=== PATIENT | female | born 1950 | race Caucasian/White ===

== ENCOUNTER → 2018-04-01 11:30 | Outpatient (CLI) | payer MEDICARE, OTHER, SELFPAY ==
--- NOTE | 2018-04-01 | DI.MG.S_ITS ---
BILATERAL DIGITAL SCREENING MAMMOGRAM 3D/2D WITH CAD POST LUMPECTOMY: 04/01/2018 CLINICAL: Routine screening. Personal history of right breast cancer. Comparison is made to exams dated: 12/18/2016 mammogram, 12/31/2015 mammogram, and 11/20/2014 mammogram - [facility]. Prior films are currently not available. The tissue of both breasts is heterogeneously dense. This may lower the sensitivity of mammography. Current study was also evaluated with a Computer Aided Detection (CAD) system. There are benign post operative findings in the right breast. No significant masses, calcifications, or other findings are seen in either breast. There has been no significant interval change. IMPRESSION: There is no mammographic evidence of malignancy. A 1 year screening mammogram is recommended. When the prior films are obtained, an addendum will be made. This exam was interpreted at Station ID: [id number]. NOTE: For mammograms, a report in lay terms will be sent to the patient. Approximately 15% of breast malignancies will not be visualized mammographically. In the management of a palpable breast mass, a negative mammogram must not discourage biopsy of a clinically suspicious lesion. Electronically Signed By: Naheed arora/melchor:04/11/2018 14:53:44 letter sent: Normal Exam ACR BI-RADS Category 2: Benign Finding(s) 3342F
== END ==
PROVIDERS: Visit Provider Internal Medicine
DX: Z12.31 Encounter for screening mammogram for malignant neoplasm of breast (principal)
CPT/HCPCS: 77063; 77067

== ENCOUNTER → 2018-05-05 07:00 | Outpatient (CLI) | payer MEDICARE, OTHER, SELFPAY ==
[2018-05-05 12:04] LABS: BUN Creatinine Ratio 13.8 (6-22); Blood Urea Nitrogen 11 mg/dL (7-17); Calcium 9.1 mg/dL (8.4-10.2); Carbon Dioxide 26 mmol/L (22-32); Chloride 105 mmol/L (98-107); Cholesterol 209 mg/dL (140-199); Estimated Glomerular Filt Rate > 60.0 mL/min (>60); Glucose 85 mg/dL (80-110); HDL Cholesterol 63 mg/dL (40-60); HEMOLYSIS < 15 (0-50); LDL Cholesterol Calculated 133 mg/dL (<100); Potassium 3.8 mmol/L (3.4-5.1); Sodium 145 mmol/L (137-145); Triglycerides 66 mg/dL (35-150)
== END ==
PROVIDERS: Visit Provider Internal Medicine
DX: I10 Essential (primary) hypertension (principal); E78.5 Hyperlipidemia, unspecified
CPT/HCPCS: 36415; 80048; 80061

== ENCOUNTER → 2019-06-06 16:04 | Outpatient (CLI) | payer MEDICARE, OTHER, SELFPAY ==
--- NOTE | 2019-06-06 | DI.MG.S_ITS ---
BILATERAL DIGITAL SCREENING MAMMOGRAM 3D/2D WITH CAD: 06/06/2019 CLINICAL: Routine screening. Personal history of right breast cancer. Comparison is made to exams dated: 04/01/2018 mammogram - [facility], 12/18/2016 mammogram, and 12/31/2015 mammogram - [facility]. The tissue of both breasts is heterogeneously dense. This may lower the sensitivity of mammography. Current study was also evaluated with a Computer Aided Detection (CAD) system. There are benign post operative findings in the right breast. No significant masses, calcifications, or other findings are seen in either breast. There has been no significant interval change. IMPRESSION: There is no mammographic evidence of malignancy. A 1 year screening mammogram is recommended. This exam was interpreted at Station ID: [id number]. NOTE: For mammograms, a report in lay terms will be sent to the patient. Approximately 15% of breast malignancies will not be visualized mammographically. In the management of a palpable breast mass, a negative mammogram must not discourage biopsy of a clinically suspicious lesion. Electronically Signed By: Naheed arora/melchor:06/06/2019 16:48:32 letter sent: Normal Exam ACR BI-RADS Category 2: Benign Finding(s) 3342F
== END ==
PROVIDERS: PCP Nurse Practitioner; Visit Provider Nurse Practitioner
DX: Z12.31 Encounter for screening mammogram for malignant neoplasm of breast (principal); Z85.3 Personal history of malignant neoplasm of breast
CPT/HCPCS: 77063; 77067

== ENCOUNTER → 2019-07-18 08:16 | Outpatient (CLI) | payer MEDICARE, OTHER, SELFPAY ==
[2019-07-18 09:43] LABS: Cholesterol 233 mg/dL (140-199); HDL Cholesterol 66 mg/dL (40-60); LDL Cholesterol Calculated 146 mg/dL (<100); Triglycerides 104 mg/dL (35-150)
[2019-07-18 10:10] LABS: Free T3, Triiodothyronine Free 4.66 pg/mL (2.77-5.27); Free T4, Direct Thyroxine 1.11 ng/dL (0.78-2.19)
[2019-07-18 10:23] LABS: Thyroid Stimulating Hormone 3.53 uIU/mL (0.47-4.68)
== END ==
PROVIDERS: PCP Nurse Practitioner; Visit Provider Nurse Practitioner
DX: E78.5 Hyperlipidemia, unspecified (principal); I10 Essential (primary) hypertension; Z86.39 Personal history of other endocrine, nutritional and metabolic disease
CPT/HCPCS: 36415; 80061; 84439; 84443; 84481

== ENCOUNTER → 2019-07-25 09:51 | Outpatient (CLI) | payer MEDICARE, OTHER, SELFPAY | PROVIDERS: PCP Nurse Practitioner; Visit Provider Nurse Practitioner | DX: M85.852 Other specified disorders of bone density and structure, left thigh (principal); Z78.0 Asymptomatic menopausal state; Z85.3 Personal history of malignant neoplasm of breast | CPT/HCPCS: 77080 ==

== ENCOUNTER → 2019-08-03 10:22 | Outpatient (CLI) | payer MEDICARE, OTHER, SELFPAY ==
--- NOTE | 2019-08-03 11:44 | DIET.PN ---
Nutrition Initial Assessment:? ASSESS:???Mrs. Patten is a 68 yof referred for HTN and hypercholesterolemia nutrition therapy. She reports family hx of HTN and high cholesterol. She has been taking Lisinopril but would like to avoid statins through lifestyle changes. She generally avoids processed foods and dining out, but admits to eating red meat 1-2x/day including apodaca, sausage, steak, pork. She recently started working with a personal companion but was inactive prior to that. She is starting to track her food intake on ?my fitness pal?, but reports she is not sure if she is eating the appropriate amount of calories/macro to meet her needs. ? LABS: Per pt report:? Chol: 233 LDL: 146 HDL: 66 Tr ? MEDS:?? lisinopril 10 mg ? DIET: Per 24-hour recall:? B: oatmeal w/ butter, nuts, cranb, br sugar) or avocado and apodaca on toast L: cheeseburger D: fish w/ sweet potato and brocc or salad with blue cheese and apodaca ? Weight: 190 lb Ht:? 70.5 in BMI: 26.9 ? Exercise:? working with a resident athletic trainer 2-3x/ wk NUTRITION DX 1. Overweight/Obesity related to excessive energy intake, food- and nutrition-related knowledge deficit as evidenced by pt report, overconsumption of high-fat and/or energy dense foods, lack of physical activity, BMI more than normative standards for age and sex (overweight).? 2. Altered lab values related to food- and nutrition related knowledge deficit as evidenced by overconsumption of food sources high in saturated fats and sodium, dx HTN w/ hypercholesterolemia. INTERVENTION(s): 1. Discussed caloric/macronutrient needs for ht, wt, activity level and weight loss. Created calorie goal of [id number] (500 calorie deficit for 1 lb/wk weight loss). 2. Discussed the effect of carbohydrates/protein/fat on blood sugar and weight control.? Stressed importance of consistent carbohydrate intake at each meal and provided instructions for recommended servings/portions of carbohydrates/protein per meal. Provided pt with educational material. 3. Reviewed label reading and what to look for. Recommended 200 mg cholesterol and <2g sodium/day. ? Provided handouts.?? 4. Discussed the difference between simple versus complex carbohydrates and the effect of fiber on blood sugar and cholesterol control.? Discussed various methods to increase fiber content in diet. 5. Stressed importance of meal timing and not going >4-5 hours between meals. Encouraged utilizing the plate method to ensure meals are coming from all food sources. 6. Discussed importance of food preparation to encourage healthy eating, portion control, and prevent hunger/over snacking. 7. Discussed healthy weight loss goals of 1-2lbs per week through diet and exercise.? Pt agreeable to keeping a daily food record including portions. Goals: 1. Lose 10 lbs (5%) of total body weight by follow up labs in 3 mo through cutting calories to 1500 lashonda/day with 50% carb, 25% pro, 25% fat ratios. MONITOR/EVALUATE: Anticipate excellent compliance.? Patient will follow up with new labs.
== END ==
PROVIDERS: PCP Nurse Practitioner; Referring Provider Nurse Practitioner; Visit Provider Nurse Practitioner
DX: I10 Essential (primary) hypertension (principal); E78.00 Pure hypercholesterolemia, unspecified; Z71.3 Dietary counseling and surveillance; Z68.26 Body mass index [BMI] 26.0-26.9, adult
CPT/HCPCS: 97802

== ENCOUNTER → 2019-09-01 12:08 | Outpatient (CLI) | payer MEDICARE, OTHER, SELFPAY ==
[2019-09-01 13:14] LABS: BUN Creatinine Ratio 17.1 (6-22); Blood Urea Nitrogen 12 mg/dL (7-17); Calcium 9.3 mg/dL (8.4-10.2); Carbon Dioxide 28 mmol/L (22-32); Chloride 102 mmol/L (98-107); Estimated Glomerular Filt Rate > 60.0 mL/min (>60); Glucose 84 mg/dL (80-110); HEMOLYSIS < 15 (0-50); Potassium 5.2 mmol/L (3.4-5.1); Sodium 135 mmol/L (137-145)
== END ==
PROVIDERS: PCP Nurse Practitioner; Referring Provider Nurse Practitioner; Visit Provider Nurse Practitioner
DX: M85.80 Other specified disorders of bone density and structure, unspecified site (principal)
CPT/HCPCS: 36415; 80048

== ENCOUNTER → 2019-09-06 08:18 | Outpatient (CLI) | payer MEDICARE, OTHER, SELFPAY ==
[2019-09-06 09:35] LABS: Collection Time Urine 24 Hours; Creat Clearance, Corrected 99.5 mL/MIN; Creatinine Clearance Urine 114.4 mL/MIN; Creatinine Urine Random 48.8 mg/dL; Patient Height Urine 70 inches; Patient Weight Urine 180 lbs; Total Volume Urine 2700 mL
== END ==
PROVIDERS: PCP Nurse Practitioner; Referring Provider Nurse Practitioner; Visit Provider Nurse Practitioner
DX: Z59.8 Other problems related to housing and economic circumstances (principal)
CPT/HCPCS: 36415; 82575

== ENCOUNTER → 2019-09-07 10:41 | Outpatient (CLI) | payer MEDICARE, OTHER, SELFPAY ==
[2019-09-07 11:10] LABS: Add Manual Diff / Slide Review NO; Basophils Absolute Auto 0 /uL (0-100); Eosinophils Absolute Auto 100 /uL (0-450); Eosinophils Percent Auto 1.4 % (2-4); Hematocrit 37.6 % (36-46); Hemoglobin 12.8 g/dL (12.0-16.0); Lymphocytes Absolute Auto 1300 /uL (1100-4500); Lymphocytes Percent Auto 28.5 % (25-40); Mean Corpuscular HGB Conc 34.1 % (30-36); Mean Corpuscular Hemoglobin 30.4 PG (26-34); Mean Corpuscular Volume 89.2 fL (80-100); Monocytes Absolute Auto 400 /uL (0-900); Neutrophils Absolute Auto 2700 /uL (1500-7000); Neutrophils Percent Auto 59.1 % (50-75); Platelet Count 233 X10^3/uL (150-400); Red Blood Cell Count 4.21 X10^6/uL (4.0-5.2); Red Cell Distribution Width 13.5 % (11.6-14.8); White Blood Cell Count 4.5 X10^3/uL (4.5-11.0)
[2019-09-07 11:21] LABS: Erythrocyte Sedimentation Rate 10 MM/HR (0-20)
[2019-09-07 11:37] LABS: Uric Acid 3.4 mg/dL (2.5-6.2)
[2019-09-07 11:42] LABS: Rheumatoid Factor 10.7 IU/mL (<12.0)
[2019-09-07 11:44] LABS: C-Reactive Protein Quant < 0.5 mg/dL (<1.0)
[2019-09-12 08:35] LABS: ANA Screen, IFA Negative (.)
== END ==
PROVIDERS: PCP Nurse Practitioner; Referring Provider Orthopaedic Surgery; Visit Provider Orthopaedic Surgery
DX: M25.531 Pain in right wrist (principal); M25.561 Pain in right knee
CPT/HCPCS: 36415; 84550; 85025; 85651; 86038; 86140; 86430

== ENCOUNTER → 2020-01-10 08:54 | Outpatient (CLI) | payer MEDICARE, OTHER, SELFPAY ==
[2020-01-10 09:55] LABS: Albumin 3.9 g/dL (3.5-5.0); Albumin Globulin Ratio 1.7 (1.0-2.8); Alkaline Phosphatase 73 U/L (38-126); Aspartate Aminotransferase 30 IU/L (14-36); BUN Creatinine Ratio 16.9 (6-22); Bilirubin Total 0.6 mg/dL (0.2-1.3); Blood Urea Nitrogen 13 mg/dL (7-17); Calcium 9.5 mg/dL (8.4-10.2); Carbon Dioxide 30 mmol/L (22-32); Chloride 105 mmol/L (98-107); Cholesterol 156 mg/dL (140-199); Estimated Glomerular Filt Rate > 60.0 mL/min (>60); Globulin 2.3 g/dL (1.7-4.1); Glucose 88 mg/dL (80-110); HDL Cholesterol 66 mg/dL (40-60); HEMOLYSIS < 15 (0-50); LDL Cholesterol Calculated 79 mg/dL (<100); Potassium 4.5 mmol/L (3.4-5.1); Sodium 138 mmol/L (137-145); Total Protein 6.2 g/dL (6.3-8.2); Triglycerides 55 mg/dL (35-150)
[2020-01-10 14:24] LABS: Alanine Aminotransferase 21 IU/L (<35)
[2020-01-10 16:29] LABS: Creatinine Urine Random 101.5 mg/dL
[2020-01-10 16:33] LABS: Microalbumi Creatinin Ratio Ur 6.8 ug/mg CR (<30); Microalbumin Urine Random 0.7 mg/dL (0-1.6)
== END ==
PROVIDERS: PCP Nurse Practitioner; Referring Provider Nurse Practitioner; Visit Provider Nurse Practitioner
DX: E78.5 Hyperlipidemia, unspecified (principal); I10 Essential (primary) hypertension; Z79.899 Other long term (current) drug therapy
CPT/HCPCS: 36415; 80053; 80061; 82043; 82570

== ENCOUNTER 2020-03-12 12:16 | Emergency (ER) | payer MEDICARE, OTHER, SELFPAY ==
[2020-03-12] VITALS (22 sets, daily range): BP systolic 173–217; BP diastolic 72–158; PULSE 48–70; RESP 15–45; O2SAT 94–100
--- NOTE | 2020-03-12 12:23 | DI.RAD.S_ITS ---
PROCEDURE: XR CHEST 1V INDICATIONS: chest pain TECHNIQUE: One view of the chest was acquired. COMPARISON: None. FINDINGS: Surgical changes and devices: Right axillary clips and right chest wall clips are seen. Lungs and pleura: Lungs are clear. No pleural effusions or pneumothorax. Mediastinum: Mediastinal contours appear normal. Heart size is normal. Bones and chest wall: No suspicious bony lesions. Age-appropriate bony degenerative changes are seen. Overlying soft tissues appear unremarkable. IMPRESSION: Clear lungs. Postoperative and degenerative changes are seen. Dictated by: Dominick Sherman M.D. on 03/12/2020 at 12:45 Approved by: Dominick Sherman M.D. on 03/12/2020 at 12:46
--- NOTE | 2020-03-12 12:25 | ED.GENADULT ---
HPI - General Adult General Chief complaint: Chest Pain Stated complaint: HEART RATE IS IRRATIC TODAY Time Seen by Provider: 03/12/20 12:25 History of Present Illness HPI narrative: 69-year-old woman with a history of hypertension, hyperlipidemia who presents with concerns for an irregular heart rate today. When she got up this morning she put on her watch which informed her that her heart rate has been in the 40 range for approximately 10 minute (with which she was completely asymptomatic) and then as high as 8 in settling back into the 60 range which is typically where she runs. She was concerned with the erratically numbers all within add number of hours. Again no palpitations, no dyspnea she does complain of some mild central chest pressure but not actually pain. Her blood pressure is significantly elevated today and she takes only 10 mg of lisinopril at HS (and she has been compliant with this). Only additional symptoms include mildly decreased appetite over the last 3 days. She is not having orthopnea or exertional dyspnea and has no lower extremity edema. Has not noticed any cough, fevers, vomiting, diarrhea. Related Data Home Medications Medication Instructions Recorded Confirmed lisinopril 10 mg PO QPM 03/12/20 03/12/20 Allergies Allergy/AdvReac Type Severity Reaction Status Date / Time chemo IV medication, unknown Allergy Severe unable to Uncoded 08/30/19 11:50 name breath Review of Systems Review of Systems Narrative: Pertinent positive and negative findings as per HPI Remainder of review of systems is otherwise unremarkable for Constitutional: Fevers, chills, weakness ENT: No sore throat, neck pain, ear pain Respiratory: Cough, wheeze, dyspnea : Dysuria, hematuria, flank pain MS: Muscle weakness, numbness, joint swelling or warmth Neuro: Syncope, dizziness, tingling Patient History Medical History Ankle fracture (Resolved ~2016) Breast cancer (Inactive ~2003) Chicken pox (Resolved ~1958) Constipation (Acute) Endometriosis (Resolved ~1993) Fibroids (Resolved ~1993) Heavy menstrual period (Resolved ~1993) History of right breast cancer (Inactive) Hypothyroidism (Acute) Measles (Resolved ~1956) Migraines (Chronic ~2006) Mumps (Resolved ~1957) Ocular migraine (Inactive) Osteopenia after menopause (Acute) Osteopenia with high risk of fracture (Acute ~2004) 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) Ovarian cyst (Resolved ~1993) Transient global amnesia (Inactive ~2008) Vertigo (Inactive ~07/13/19) Vitamin D deficiency (Inactive) Surgical History Anesthesia (Resolved) H/O total hysterectomy (Acute ~10/1993) History of laminectomy (Resolved ~08/1996) History of lumpectomy (Resolved ~07/2003) Family History Father Diabetes mellitus History of heart disease Hypertension Stroke Mother Hypertension Dementia Brother Dementia Brother Cancer Hypertension History of heart disease Brother Hypertension Grandfather History of heart disease Grandmother Tuberculosis Grandfather TBI (traumatic brain injury) Grandmother History of heart disease Social History Smoking Status: Never smoker Smoking Status: Never smoker Exam Narrative Exam Narrative: General: Healthy appearing, in no acute distress. Able to give a complete and coherent history. Well-nourished well-developed HEENT: Moist mucous membranes, normal sclera with reactive pupils, Neck: No JVD, supple Respiratory: Lungs are clear to auscultation, no wheezing no rales no rhonchi. Full and symmetrical air movement Cardiac: Regular rate and rhythm no murmurs no bruits Abdomen: Soft nontender good bowel tones, no flank pain Skin: Warm and dry, no rashes Neurologic: Grossly neurologically intact with no obvious asymmetries or abnormalities Extremities: No trauma, well perfused Psych: Cooperative, appropriate insight and affect Initial Vital Signs Initial Vital Signs: Vital Signs Pulse Rate 65 03/12/20 12:20 Respiratory Rate 18 03/12/20 12:20 Blood Pressure 208/91 H 03/12/20 12:20 Pulse Oximetry 100 03/12/20 12:20 Course Orders Ordered: ED Orders 03/12/20 12:23 XR chest 1V Stat EKG-12 Lead Stat 03/12/20 12:39 Complete Blood Count AUTO DIFF Stat Comprehensive Metabolic Panel Stat Lipase Stat Magnesium Stat Partial Thromboplastin Time Stat Prothrombin Time INR Stat Troponin & CK Cardiac Panel Stat 03/12/20 14:43 Urine Microscopic Stat 03/12/20 14:52 Thyroid Stimulating Hormone Stat Troponin I Stat Discontinued Medications Aspirin (Aspirin Chew) 324 mg PO NOW ONE Stop: 03/12/20 12:24 Last Admin: 03/12/20 12:31 Dose: 324 mg Documented by: MIRTHA Lisinopril (Zestril) 10 mg PO NOW ONE Stop: 03/12/20 14:49 Last Admin: 03/12/20 14:53 Dose: 10 mg Documented by: MADDI Metoprolol Tartrate (Lopressor) 25 mg PO NOW ONE Stop: 03/12/20 13:03 Last Admin: 03/12/20 13:17 Dose: 25 mg Documented by: MIRTHA Vital Signs Vital signs: Vital Signs - 8 hr 03/12/20 12:20 03/12/20 12:24 03/12/20 12:30 Pulse Rate 65 68 69 Respiratory Rate 18 16 22 Blood Pressure 208/91 H 208/91 H 210/137 H Pulse Oximetry 100 99 100 03/12/20 12:31 03/12/20 12:39 03/12/20 13:00 Pulse Rate 70 62 66 Respiratory Rate 22 16 22 Blood Pressure 217/112 H 187/84 H Pulse Oximetry 100 100 100 03/12/20 13:01 03/12/20 13:30 03/12/20 13:31 Pulse Rate 65 60 59 L Respiratory Rate 21 16 18 Blood Pressure 194/158 H 173/72 H Pulse Oximetry 100 100 100 03/12/20 14:00 03/12/20 14:01 03/12/20 14:31 Pulse Rate 54 L 55 L 57 L Respiratory Rate 16 19 Blood Pressure 173/72 H Pulse Oximetry 100 100 100 03/12/20 14:38 03/12/20 14:53 03/12/20 15:00 Pulse Rate 50 L 53 L 49 L Respiratory Rate 22 16 Blood Pressure 192/89 H 192/89 H Pulse Oximetry 100 99 03/12/20 15:01 03/12/20 15:30 03/12/20 15:31 Pulse Rate 53 L 53 L 52 L Respiratory Rate 23 21 45 H Blood Pressure 179/81 H 188/84 H Pulse Oximetry 100 94 100 Medical Decision Making Medical Records Medical records reviewed: Yes I reviewed the patient's medical records. Lab Data Lab results reviewed: Yes I reviewed the patient's lab results. Result diagrams: 03/12/20 12:39 03/12/20 12:39 Labs: Lab Results 03/12/20 03/12/20 03/12/20 Range/Units 12:39 12:39 12:39 WBC 5.4 (4.5-11.0) X10^3/uL RBC 4.20 (4.0-5.2) X10^6/uL Hgb 12.5 (12.0-16.0) g/dL Hct 37.9 (36-46) % MCV 90.3 (80-100) fL MCH 29.8 (26-34) PG MCHC 33.0 (30-36) % RDW 13.3 (11.6-14.8) % Plt Count 237 (150-400) X10^3/uL Neut % (Auto) 57.6 (50-75) % Lymph % (Auto) 30.6 (25-40) % Routt % (Auto) 9.6 (3-14) % Eos % (Auto) 1.4 L (2-4) % Baso % (Auto) 0.8 (0-2) % Neut # (Auto) 3100 (8458-6097) /uL Lymph # (Auto) 1700 (7331-6172) /uL Routt # (Auto) 500 (0-900) /uL Eos # (Auto) 100 (0-450) /uL Baso # (Auto) 0 (0-100) /uL PT 11.8 (10.1-12.7) SECONDS INR 1.0 (0.9-1.3) APTT 36 (26.4-36.2) SECONDS Sodium 138 (137-145) mmol/L Potassium 4.0 (3.4-5.1) mmol/L Chloride 103 (98-107) mmol/L Carbon Dioxide 30 (22-32) mmol/L BUN 12 (7-17) mg/dL Creatinine 0.76 (0.52-1.04) mg/dL Estimated GFR > 60.0 (>60) mL/min BUN/Creatinine Ratio 15.8 (6-22) Glucose 97 (80-110) mg/dL Calcium 9.3 (8.4-10.2) mg/dL Magnesium 2.0 (1.6-2.3) mg/dL Total Bilirubin 0.5 (0.2-1.3) mg/dL AST 29 (14-36) IU/L ALT 22 (<35) IU/L Alkaline Phosphatase 76 (38-126) U/L Total Creatine Kinase 45 (30-135) U/L CK-MB (CK-2) TNP CK-MB (CK-2) Rel Index TNP Troponin I < 0.012 (0.01-0.034) ng/mL Total Protein 7.1 (6.3-8.2) g/dL Albumin 4.2 (3.5-5.0) g/dL Globulin 2.9 (1.7-4.1) g/dL Albumin/Globulin Ratio 1.4 (1.0-2.8) Lipase 81 (23-300) U/L Urine RBC (0-5/HPF) Urine WBC (0-5/HPF) Ur Squamous Epith Cells (0-5/HPF) Amorphous Sediment Urine Bacteria (None) Ur Culture Indicated? 03/12/20 03/12/20 Range/Units 14:43 14:52 WBC (4.5-11.0) X10^3/uL RBC (4.0-5.2) X10^6/uL Hgb (12.0-16.0) g/dL Hct (36-46) % MCV (80-100) fL MCH (26-34) PG MCHC (30-36) % RDW (11.6-14.8) % Plt Count (150-400) X10^3/uL Neut % (Auto) (50-75) % Lymph % (Auto) (25-40) % Routt % (Auto) (3-14) % Eos % (Auto) (2-4) % Baso % (Auto) (0-2) % Neut # (Auto) (6634-4737) /uL Lymph # (Auto) (5405-0012) /uL Routt # (Auto) (0-900) /uL Eos # (Auto) (0-450) /uL Baso # (Auto) (0-100) /uL PT (10.1-12.7) SECONDS INR (0.9-1.3) APTT (26.4-36.2) SECONDS Sodium (137-145) mmol/L Potassium (3.4-5.1) mmol/L Chloride (98-107) mmol/L Carbon Dioxide (22-32) mmol/L BUN (7-17) mg/dL Creatinine (0.52-1.04) mg/dL Estimated GFR (>60) mL/min BUN/Creatinine Ratio (6-22) Glucose (80-110) mg/dL Calcium (8.4-10.2) mg/dL Magnesium (1.6-2.3) mg/dL Total Bilirubin (0.2-1.3) mg/dL AST (14-36) IU/L ALT (<35) IU/L Alkaline Phosphatase (38-126) U/L Total Creatine Kinase (30-135) U/L CK-MB (CK-2) CK-MB (CK-2) Rel Index Troponin I < 0.012 (0.01-0.034) ng/mL Total Protein (6.3-8.2) g/dL Albumin (3.5-5.0) g/dL Globulin (1.7-4.1) g/dL Albumin/Globulin Ratio (1.0-2.8) Lipase (23-300) U/L Urine RBC None seen (0-5/HPF) Urine WBC 0-1/hpf (0-5/HPF) Ur Squamous Epith Cells 0-1 /hpf (0-5/HPF) Amorphous Sediment 1+ Urine Bacteria Occasional (0-1) (None) Ur Culture Indicated? Cult not indicated Urine Dip Bedside Urine Glucose Negative Bedside Urine Bilirubin - Negative Bedside Urine Ketone - Negative Urine Specific [place] 1.010 Bedside Urine Occult Blood - Negative Bedside Urine pH 7.0 Bedside Urine Protein - Negative Bedside Urine Urobilinogen - Negative Bedside Urine Nitrite - Negative Bedside Urine Leukocytes +/- 15 Esterase Point of care testing: Urine Dip Bedside Urine Glucose Negative Bedside Urine Bilirubin - Negative Bedside Urine Ketone - Negative Urine Specific [place] 1.010 Bedside Urine Occult Blood - Negative Bedside Urine pH 7.0 Bedside Urine Protein - Negative Bedside Urine Urobilinogen - Negative Bedside Urine Nitrite - Negative Bedside Urine Leukocytes +/- 15 Esterase Imaging Data Chest x-ray: Radiologist's Impression: FINDINGS: Surgical changes and devices: Right axillary clips and right chest wall clips are seen. Lungs and pleura: Lungs are clear. No pleural effusions or pneumothorax. Mediastinum: Mediastinal contours appear normal. Heart size is normal. Bones and chest wall: No suspicious bony lesions. Age-appropriate bony degenerative changes are seen. Overlying soft tissues appear unremarkable. IMPRESSION: Clear lungs. Postoperative and degenerative changes are seen. Dictated by: Dominick Sherman M.D. on 03/12/2020 at 12:45 ECG Data Attestation: I personally reviewed and interpreted this ECG as follows: Interpretation: Sinus rhythm at 65 Occasional PVC No acute STT wave changes Normal axis, normal intervals Telemetry strip does note a 3 second pause with continued P waves. This does meet criteria for high-grade AV node dysfunction. She was asymptomatic with this episode. MDM Narrative Medical decision making narrative: 69-year-old woman with hypertension on 10 mg of lisinopril presents with complaints of her Apple watch telling her that she has had a low heart rate. She was asymptomatic with this this morning after the low heart rate in the 40 range the watch than documented heart rate in the 80 range and then settled back down to her baseline of 60. She notes some mild pressure central chest but no other symptoms otherwise. Initial lab workup is unremarkable. She has a brief episode on telemetry with 4 dropped QRS complexes, a 3 second pause essentially, that is asymptomatic. Second troponin is currently pending. Case is reviewed with Dr. Hernandez, cardiology. This does meet criteria for high-grade concussion deficit however probably does not need hospitalization. His recommendation was a 7 day Zio patch and follow-up with Dr. West as well as checking a TSH, assuming that her repeat troponin is negative. Repeat troponin is equally unremarkable. There have been no more pauses picked up on telemetry. Findings are reviewed with the patient. Recommendations reviewed with AMBREEN Phillips. She will contact the patient with the anticipation of seeing her tomorrow and arranging for an urgent Zio patch as well as cardiac consultation. Have asked the patient to return to the emergency room should she have any worsening signs or symptoms of heart block or bradycardia. Discharge Plan Departure Patient Disposition: Home Clinical Impression: Arrhythmia, sinus node, Bradycardia Hypertension Qualifiers: Hypertension type: essential hypertension Qualified Code(s): I10 - Essential (primary) hypertension Instructions: DI for Bradycardia Activity Restrictions/Additional Instructions: Thank you for coming in today Your workup looking for heart attack symptoms was very reassuring. There is no evidence of a heart attack, pneumonia, or stroke. Your hurt rhythm has been varying anywhere from 40-80 and for the most part has been sinus rhythm. You did have a very brief episode where your heart did not beat for 3 seconds however this did not cause you any symptoms at this time. I have reviewed this with our research project coordinator who is recommended as Zio patch, this is an outpatient heart rate and rhythm monitor, and then follow-up with Dr. West one of our cardiologists who spell specializes in heart rhythm issues I have spoken with Queta Carmen, her office will call to schedule an appointment with you tomorrow. She is already working on getting the Zio patch arranged If you have increasing dizziness, feel like you are going to pass out, heart rate that are consistently staying in the 30 range, chest pain or pressure or stroke-like symptoms you need to return to the emergency department. Please increase your lisinopril dose to 20 mg every evening(from the previous 10 mg), and do keep track of your blood pressures to review with Queta Carmen at your next visit Prescriptions: No Action lisinopril 20 mg tablet 10 mg PO QPM RF: 0 Referrals: Queta Carmen ARNP [Primary Care Provider] -
[2020-03-12] MEDS: ASPIRIN 81 MG CHEW TAB 324 MG PO (12:31)
[2020-03-12 12:47] LABS: Add Manual Diff / Slide Review NO; Basophils Absolute Auto 0 /uL (0-100); Basophils Percent Auto 0.8 % (0-2); Eosinophils Absolute Auto 100 /uL (0-450); Eosinophils Percent Auto 1.4 % (2-4); Hematocrit 37.9 % (36-46); Hemoglobin 12.5 g/dL (12.0-16.0); Lymphocytes Absolute Auto 1700 /uL (1100-4500); Lymphocytes Percent Auto 30.6 % (25-40); Mean Corpuscular Hemoglobin 29.8 PG (26-34); Mean Corpuscular Volume 90.3 fL (80-100); Monocytes Absolute Auto 500 /uL (0-900); Monocytes Percent Auto 9.6 % (3-14); Neutrophils Absolute Auto 3100 /uL (1500-7000); Neutrophils Percent Auto 57.6 % (50-75); Platelet Count 237 X10^3/uL (150-400); Red Cell Distribution Width 13.3 % (11.6-14.8); White Blood Cell Count 5.4 X10^3/uL (4.5-11.0)
[2020-03-12 12:53] LABS: HEMOLYSIS < 15 (0-50)
[2020-03-12 12:54] LABS: Prothrombin Time 11.8 SECONDS (10.1-12.7)
[2020-03-12 12:56] LABS: PTT Partial Thromboplastin Tim 36 SECONDS (26.4-36.2)
[2020-03-12 13:02] LABS: Alanine Aminotransferase 22 IU/L (<35); Albumin 4.2 g/dL (3.5-5.0); Albumin Globulin Ratio 1.4 (1.0-2.8); Alkaline Phosphatase 76 U/L (38-126); Aspartate Aminotransferase 29 IU/L (14-36); BUN Creatinine Ratio 15.8 (6-22); Bilirubin Total 0.5 mg/dL (0.2-1.3); Blood Urea Nitrogen 12 mg/dL (7-17); Calcium 9.3 mg/dL (8.4-10.2); Carbon Dioxide 30 mmol/L (22-32); Chloride 103 mmol/L (98-107); Creatine Kinase 45 U/L (30-135); Estimated Glomerular Filt Rate > 60.0 mL/min (>60); Globulin 2.9 g/dL (1.7-4.1); Glucose 97 mg/dL (80-110); Lipase 81 U/L (23-300); Sodium 138 mmol/L (137-145); Total Protein 7.1 g/dL (6.3-8.2)
[2020-03-12] MEDS: METOPROLOL IR 25 MG TABLET PO (13:17)
[2020-03-12 13:23] LABS: Troponin I < 0.012 ng/mL (0.01-0.034)
[2020-03-12] MEDS: lisinopriL 10 MG TABLET PO (14:53)
[2020-03-12 15:21] LABS: RBC Urine None Seen (0-5/HPF)
[2020-03-12 15:29] LABS: Troponin I < 0.012 ng/mL (0.01-0.034)
[2020-03-12 15:40] LABS: Amorphous Sediment Urine 1+; Bacteria Urine Occasional (0-1); Culture Indicated Urine Cult Not Indicated; Squamous Epithelial Cell Urine 0-1 /HPF (0-5/HPF); WBC Urine 0-1/HPF (0-5/HPF)
[2020-03-12 16:39] LABS: Thyroid Stimulating Hormone 3.21 uIU/mL (0.47-4.68)
== END 2020-03-12 16:54 | disposition home or self-care (01) ==
PROVIDERS: Emergency Provider Emergency Medicine; PCP Nurse Practitioner
DX: I49.8 Other specified cardiac arrhythmias (principal); I10 Essential (primary) hypertension; E78.5 Hyperlipidemia, unspecified
CPT/HCPCS: 36415; 71045; 80053; 81003; 81015; 82550; 83690; 83735; 84443; 84484; 85025; 85610; 85730; 93005; 93010; 99284

== ENCOUNTER → 2020-03-13 13:27 | Outpatient (CLI) | payer MEDICARE, OTHER, SELFPAY ==
--- NOTE | 2020-03-28 16:18 | P.HOLT.S_ITS ---
Tank Car Reconditioner Report Referral & Results Date Patient Seen: 04/12/20 Requesting provider: Queta Carmen Indication: Arrhythmias Duration of monitoring (days): 7 Diary information: There were 21 patient triggered events and 20 patient diary entries Patient's diary events were associated with sinus rhythm, Wenckebach block, ectopic atrial rhythm, PACs, and AV block. Patient triggered events were associated with all of the above except ectopic atrial rhythm Data: Minimum sinus heart rate was 45 beats per minute at 08:49 on 03/15/2020, minimum overall heart rate was 21 beats per minute at 09:55 on 03/18/2020 during a episode of high-grade AV block that appears to be third-degree heart block Maximum sinus heart rate was 120 beats per minute at 16:31 on 03/17/2020. Maximum overall heart rate was 150 beats per minute at 11:57 on 03/16/2020 during a 5 beat run of SVT Less than 1% of identified beats rather ventricular supraventricular ectopic in origin Patient had 18 runs of SVT/atrial tachycardia the longest being 11 beats at a rate of 103 beats per minute which suggest atrial tachycardia Patient had 11 pauses the longest lasting 5 seconds due to the above mention probable third-degree heart block Second-degree AV block Mobitz type 1 or Wenckebach block was identified at times as well. Impression: Patient with significant pauses and high degree AV block as above. Suggest urgent Cardiology consultation. Discussed with ordering provider personally.
== END ==
PROVIDERS: Family Provider Nurse Practitioner; PCP Nurse Practitioner; Referring Provider Nurse Practitioner; Visit Provider Nurse Practitioner
DX: I49.9 Cardiac arrhythmia, unspecified (principal)
CPT/HCPCS: 0296T; 0298T

== ENCOUNTER → 2020-06-14 08:06 | Outpatient (CLI) | payer MEDICARE, OTHER, SELFPAY ==
--- NOTE | 2020-06-14 08:09 | DI.MG.S_ITS ---
BILATERAL DIGITAL SCREENING MAMMOGRAM 3D/2D WITH CAD POST LUMPECTOMY: 06/14/2020 CLINICAL: Routine screening. Personal history of right breast cancer. Comparison is made to exams dated: 06/06/2019 mammogram, 04/01/2018 mammogram - [facility], and 12/18/2016 mammogram - [facility]. The tissue of both breasts is heterogeneously dense. This may lower the sensitivity of mammography. Current study was also evaluated with a Computer Aided Detection (CAD) system. There are benign post operative findings in the right breast. No significant masses, calcifications, or other findings are seen in either breast. There has been no significant interval change. IMPRESSION: BENIGN There is no mammographic evidence of malignancy. A 1 year screening mammogram is recommended. This exam was interpreted at Station ID: [id number]. NOTE: For mammograms, a report in lay terms will be sent to the patient. Approximately 15% of breast malignancies will not be visualized mammographically. In the management of a palpable breast mass, a negative mammogram must not discourage biopsy of a clinically suspicious lesion. Electronically Signed By: Shaun mendoza/melchor:06/14/2020 09:07:58 letter sent: Normal Exam ACR BI-RADS Category 2: Benign Finding(s) 3342F
== END ==
PROVIDERS: Family Provider Nurse Practitioner; PCP Nurse Practitioner; Referring Provider Nurse Practitioner; Visit Provider Nurse Practitioner
DX: Z12.31 Encounter for screening mammogram for malignant neoplasm of breast (principal); Z85.3 Personal history of malignant neoplasm of breast
CPT/HCPCS: 77063; 77067

== ENCOUNTER → 2020-07-26 16:41 | Outpatient (CLI) | payer MEDICARE, OTHER, SELFPAY ==
[2020-07-26] MEDS: COVID-19 VACC #1, MRNA(MOD) 100 MCG/0.5 ML VIAL IM (16:54)
== END ==
PROVIDERS: Family Provider Nurse Practitioner; PCP Nurse Practitioner; Visit Provider Internal Medicine
DX: Z23 Encounter for immunization (principal)
CPT/HCPCS: 0011A; 91301

== ENCOUNTER 2020-07-26 17:10 | Emergency (ER) | payer MEDICARE, OTHER, SELFPAY ==
[2020-07-26] VITALS (7 sets, daily range): BP systolic 157–241; BP diastolic 71–107; PULSE 61–70; RESP 17–28; TEMP 36.4; O2SAT 93–100; BMI 27.9
[2020-07-26] MEDS: methylPREDNISolone 125 MG/2 ML VIAL IV (17:38)
[2020-07-26] MEDS: diphenhydrAMINE 50 MG/ML VIAL 25 MG IV (17:38)
--- NOTE | 2020-07-26 18:23 | PC.NURSE ---
pt feeling better since administration of benadryl and solu medrol. resting on stretcher, breathing calmed.
--- NOTE | 2020-07-26 18:30 | ED.ALLEREA ---
HPI - Allergic Reaction General Chief complaint: Allergic Reaction Stated complaint: Vaccine Reaction Time Seen by Provider: 07/26/20 17:34 Source: patient Mode of arrival: Ambulatory Limitations: no limitations History of Present Illness HPI narrative: Patient is a 69-year-old female who presents with difficulty breathing after COVID 19 vaccine. She said she had allergic reaction like this with chemotherapy and she received Benadryl and steroids would seem to help. She has no swelling of her tongue or lips. No rash or hives. She does has some chest heaviness MD complaint: allergic reaction Onset (ago): minute(s) Exposure: medication Related Data Home Medications Medication Instructions Recorded Confirmed lisinopril 20 mg tablet 10 mg PO QPM tab 04/15/20 04/15/20 Allergies Allergy/AdvReac Type Severity Reaction Status Date / Time COVID-19 Virus Vaccines Allergy Severe Difficulty Verified 07/26/20 18:52 Breathing chemo IV medication, unknown Allergy Severe unable to Uncoded 07/26/20 17:13 name breath Review of Systems Review of Systems Narrative: GENERAL: Denies chills, fatigue, malaise, fever, sweats, travel HEENT: Denies sinus pain, ear pain, sore throat, difficulty swallowing, neck pain RESPIRATORY: See HPI CARDIOVASCULAR: Denies chest pain, palpitations, orthopnea, edema GASTROINTESTINAL: Denies nausea, vomiting, abdominal pain, diarrhea, constipation, melena. : Denies dysuria, frequency, incontinence, hematuria, urinary retention, flank pain. MUSCULOSKELETAL: Denies weakness, joint pain, or bony pain SKIN: No rash, no erythema, no pruritus NEUROLOGIC: Denies weakness, dizziness, headache, numbness, change in speech, confusion PSYCHIATRIC: No concerning psychosocial issues. 12 point review of systems is negative except for those stated above and HPI Patient History Medical History Ankle fracture (~2016) Bilateral finger numbness Breast cancer (~2003) Chicken pox (~1958) Constipation Dizziness Endometriosis (~1993) Fibroids (~1993) Heavy menstrual period (~1993) History of right breast cancer Hypothyroidism Measles (~1956) Migraines (~2006) Mumps (~1957) Ocular migraine Osteopenia after menopause Osteopenia with high risk of fracture (~2004) Other long term acute care registered nurse (current) drug therapy Ovarian cyst (~1993) Pacemaker Second-degree heart block Transient global amnesia (~2008) Vertigo (~07/13/19) Vitamin D deficiency Surgical History Anesthesia H/O total hysterectomy (~10/1993) History of laminectomy (~08/1996) History of lumpectomy (~07/2003) Family History Father Diabetes mellitus History of heart disease Hypertension Stroke Mother Hypertension Dementia Brother Dementia Brother Cancer Hypertension History of heart disease Brother Hypertension Grandfather History of heart disease Grandmother Tuberculosis Grandfather TBI (traumatic brain injury) Grandmother History of heart disease Social History Smoking Status: Never smoker Smoking Status: Never smoker alcohol intake frequency: 0-2 drinks per day Substance Use Type: does not use Exam Initial Vital Signs Initial Vital Signs: Vital Signs Temperature 97.5 F L 07/26/20 17:13 Pulse Rate 70 07/26/20 17:13 Respiratory Rate 24 07/26/20 17:13 Blood Pressure 241/107 H 07/26/20 17:13 Pulse Oximetry 100 07/26/20 17:13 GENERAL: Well-appearing, well-nourished and in no acute distress. HEENT: Head atraumatic,EOMI, pupils reactive, face symmetric, moist mucous membranes, no significant swelling of tongue or lip CARDIOVASCULAR: Regular rate and rhythm without murmurs, rubs or gallops. RESPIRATORY: Breath sounds equal bilaterally, no wheezes rales or rhonchi. ABDOMEN: Soft, nontender. Normoactive bowel sounds all 4 quadrants. No guarding or rebound. EXTREMITIES: Normal range of motion, no clubbing or edema. Neurovascularly intact NEUROLOGICAL: Alert and oriented x4.Normal gait and speech. Cranial nerves II through XII grossly intact. SKIN: Warm, dry, no laceration, no petechiae, no rashes or lesions. Course Orders Ordered: Discontinued Medications Diphenhydramine HCl (Diphenhydramine 50 Mg/Ml Vial) 25 mg IV NOW ONE Stop: 07/26/20 17:38 Last Admin: 07/26/20 17:38 Dose: 25 mg Documented by: SCANAPO Methylprednisolone (Methylprednisolone 125 Mg/2 Ml Vial) 125 mg IV NOW ONE Stop: 07/26/20 17:38 Last Admin: 07/26/20 17:38 Dose: 125 mg Documented by: MADDI Vital Signs Vital signs: Vital Signs - 8 hr 07/26/20 17:13 07/26/20 17:21 07/26/20 17:30 Temperature 97.5 F L Pulse Rate 70 65 65 Respiratory Rate 24 17 28 H Blood Pressure 241/107 H Pulse Oximetry 100 100 98 07/26/20 17:42 07/26/20 17:46 07/26/20 18:00 Temperature Pulse Rate 62 61 64 Respiratory Rate 20 18 23 Blood Pressure 183/79 H 166/74 H 167/73 H Pulse Oximetry 100 99 97 07/26/20 18:15 Temperature Pulse Rate 63 Respiratory Rate 22 Blood Pressure 157/71 H Pulse Oximetry 93 MDM - Allergic Reaction MDM Narrative Medical decision making narrative: Patient is doing significantly better after Solu-Medrol and Benadryl. Concern for allergic reaction after vaccine. Not recommended she receive her 2nd dose although she does not have any tongue swelling with swelling she does have difficulty breathing. Discharge Plan Departure Patient Disposition: Home Clinical Impression: Allergic reaction Qualifiers: Encounter type: initial encounter Qualified Code(s): T78.40XA - Allergy, unspecified, initial encounter Instructions: DI for Anaphylaxis Activity Restrictions/Additional Instructions: *You have been diagnosed with allergic reaction *What to do: It is not recommended to have a 2nd dose of the vaccine. *Continue to take medications as directed Benadryl 25 mg every 6 hours if needed for itch *Follow up with your primary care provider in 2-3 days *Return to ER if you should have increasing shortness of breath difficulty breathing throat swelling or any new, worsening or concerning symptoms Prescriptions: No Action lisinopril 20 mg tablet 10 mg PO QPM RF: 0 Referrals: Queta Carmen ARNP [Primary Care Provider] -
== END 2020-07-26 19:06 | disposition home or self-care (01) ==
PROVIDERS: Emergency Provider Emergency Medicine; Family Provider Nurse Practitioner; PCP Nurse Practitioner
DX: T80.62XA Other serum reaction due to vaccination, initial encounter (principal); R06.02 Shortness of breath; T50.B95A Adverse effect of other viral vaccines, initial encounter; Z23 Encounter for immunization
CPT/HCPCS: 0011A; 36415; 91301; 93005; 96374; 96375; 99283; J1200; J2930

== ENCOUNTER → 2020-07-31 09:10 | Outpatient (CLI) | payer MEDICARE, OTHER, SELFPAY ==
[2020-07-31 09:59] LABS: Alanine Aminotransferase 34 IU/L (<35); Albumin 3.5 g/dL (3.5-5.0); Albumin Globulin Ratio 1.3 (1.0-2.8); Alkaline Phosphatase 81 U/L (38-126); Aspartate Aminotransferase 38 IU/L (14-36); BUN Creatinine Ratio 14.5 (6-22); Bilirubin Total 0.3 mg/dL (0.2-1.3); Blood Urea Nitrogen 12 mg/dL (7-17); Calcium 8.8 mg/dL (8.4-10.2); Carbon Dioxide 31 mmol/L (22-32); Chloride 104 mmol/L (98-107); Cholesterol 170 mg/dL (140-199); Estimated Glomerular Filt Rate > 60.0 mL/min (>60); Globulin 2.7 g/dL (1.7-4.1); Glucose 80 mg/dL (80-110); HDL Cholesterol 72 mg/dL (40-60); HEMOLYSIS < 15 (0-50); LDL Cholesterol Calculated 84 mg/dL (<100); Potassium 4.2 mmol/L (3.4-5.1); Sodium 136 mmol/L (137-145); Total Protein 6.2 g/dL (6.3-8.2); Triglycerides 68 mg/dL (35-150)
[2020-07-31 10:28] LABS: Thyroid Stimulating Hormone 3.13 uIU/mL (0.47-4.68)
== END ==
PROVIDERS: Family Provider Nurse Practitioner; PCP Nurse Practitioner; Referring Provider Nurse Practitioner; Visit Provider Nurse Practitioner
DX: E78.5 Hyperlipidemia, unspecified (principal); I10 Essential (primary) hypertension; Z79.899 Other long term (current) drug therapy
CPT/HCPCS: 36415; 80053; 80061; 84443

== ENCOUNTER → 2020-09-06 08:43 | Outpatient (CLI) | payer MEDICARE, OTHER, SELFPAY ==
[2020-09-06] MEDS: COVID-19 VACC, Ad26(JANSSEN)/PF 0.5 ML IM (08:55)
== END ==
PROVIDERS: Family Provider Nurse Practitioner; PCP Nurse Practitioner; Visit Provider Internal Medicine
DX: Z23 Encounter for immunization (principal)
CPT/HCPCS: 0031A; 91303

== ENCOUNTER → 2021-01-24 08:13 | Outpatient (CLI) | payer MEDICARE, OTHER, SELFPAY ==
[2021-01-24 10:29] LABS: Glucose Fasting 90 mg/dL (80-110)
[2021-01-24 10:53] LABS: Glucose 1 Hour 83 mg/dL (70-170)
[2021-01-24 12:19] LABS: Glucose Tol Interpretation INTERPRETATION
[2021-01-24 12:24] LABS: Glucose 2 Hour 101 mg/dL (70-140)
[2021-01-28 12:46] LABS: M-Spike % Not Observed % (Not Observed); Urine Total Protein <4.0 mg/dL (Not Estab.)
== END ==
PROVIDERS: Family Provider Nurse Practitioner; PCP Nurse Practitioner; Referring Provider Neuromusculoskeletal Medicine, Sports Medicine; Visit Provider Neuromusculoskeletal Medicine, Sports Medicine
DX: R29.898 Other symptoms and signs involving the musculoskeletal system (principal); R26.81 Unsteadiness on feet
CPT/HCPCS: 36415; 82951; 82952; 84156; 84166

== ENCOUNTER → 2021-01-29 08:34 | Outpatient (CLI) | payer MEDICARE, OTHER, SELFPAY ==
[2021-01-29 10:05] LABS: Free T3, Triiodothyronine Free 3.53 pg/mL (2.77-5.27); Free T4, Direct Thyroxine 0.97 ng/dL (0.78-2.19)
[2021-01-30 06:02] LABS: Thyroid Peroxidase Antibodies 364 IU/mL (0-34)
== END ==
PROVIDERS: Family Provider Nurse Practitioner; PCP Nurse Practitioner; Referring Provider Nurse Practitioner; Visit Provider Nurse Practitioner
DX: E06.3 Autoimmune thyroiditis (principal); M35.9 Systemic involvement of connective tissue, unspecified
CPT/HCPCS: 36415; 84439; 84443; 84481; 86376

== ENCOUNTER → 2021-03-12 09:11 | Outpatient (CLI) | payer MEDICARE, OTHER, SELFPAY ==
[2021-03-12 11:42] LABS: BUN Creatinine Ratio 14.1 (6-22); Blood Urea Nitrogen 12 mg/dL (7-17); Calcium 9.5 mg/dL (8.4-10.2); Carbon Dioxide 30 mmol/L (22-32); Chloride 106 mmol/L (98-107); Estimated Glomerular Filt Rate > 60.0 mL/min (>60); Glucose 85 mg/dL (80-110); HEMOLYSIS < 15 (0-50); Sodium 141 mmol/L (137-145)
== END ==
PROVIDERS: Family Provider Nurse Practitioner; PCP Nurse Practitioner; Referring Provider Internal Medicine Cardiovascular Disease; Visit Provider Internal Medicine Cardiovascular Disease
DX: I10 Essential (primary) hypertension (principal); E06.3 Autoimmune thyroiditis
CPT/HCPCS: 36415; 80048

== ENCOUNTER → 2021-04-02 09:26 | Outpatient (CLI) | payer MEDICARE, OTHER, SELFPAY ==
[2021-04-02 10:46] LABS: Free T3, Triiodothyronine Free 4.04 pg/mL (2.77-5.27); Free T4, Direct Thyroxine 1.43 ng/dL (0.78-2.19); Vitamin D 25 Hydroxy (D3) 49.6 ng/mL (30.0-100.0)
[2021-04-02 11:00] LABS: Thyroid Stimulating Hormone 3.06 uIU/mL (0.47-4.68)
[2021-04-03 06:11] LABS: Thyroid Peroxidase Antibodies 286 IU/mL (0-34)
[2021-04-07 13:13] LABS: Triiodothyronine T3 Reverse 23.4 ng/dL (9.2-24.1)
== END ==
PROVIDERS: Family Provider Nurse Practitioner; PCP Nurse Practitioner; Referring Provider Nurse Practitioner; Visit Provider Nurse Practitioner
DX: E03.8 Other specified hypothyroidism (principal); E06.3 Autoimmune thyroiditis; E55.9 Vitamin D deficiency, unspecified; Z79.899 Other long term (current) drug therapy
CPT/HCPCS: 36415; 82306; 84439; 84443; 84481; 84482; 86376

== ENCOUNTER → 2021-04-07 12:07 | Outpatient (CLI) | payer MEDICARE, OTHER, SELFPAY ==
--- NOTE | 2021-04-07 12:08 | DI.US.S_ITS ---
PROCEDURE: US THYROID INDICATIONS: HASHIMOTOS TECHNIQUE: Real-time scanning was performed of the thyroid gland, with image documentation. COMPARISON: [facility], MR, MR CERVICAL SPINE WITHOUT CONTRAST, 09/05/2020, 10:17. FINDINGS: Right: Thyroid lobe measures 4.5 x 1.4 x 1.2 cm, and is diffusely heterogeneous in echotexture. Moderately increased vascularity. Left: Thyroid lobe measures 3.9 x 1.4 x 1.2 cm, and is diffusely heterogeneous in echotexture. Moderately increased vascularity. Small hypoechoic nodule adjacent to the inferior margin of the thyroid measuring roughly 6 mm in maximal short axis. Isthmus: 2.1 mm thick. Nodule number: 1 Location: Left inferior Size: 0.8 x 0.5 x 0.5 cm. Composition: Solid Echogenicity: Isoechoic Shape: wider than tall. Margins: Smooth Echogenic foci: None. Total points: 3 ACR TI-RADS category: Mildly suspicious Nodule number: 2 Location: Right mid Size: 0.9 x 0.5 x 0.5 cm. Composition: Solid Echogenicity: Isoechoic Shape: wider than tall. Margins: Smooth Echogenic foci: None Total points: 3 ACR TI-RADS category: Mildly suspicious IMPRESSION: 1. Mildly suspicious bilateral subcentimeter nodules. Given the small size, no additional follow-up is recommend. 2. Heterogeneous thyroid gland with increased vascularity consistent with clinical diagnosis of Osvaldo thyroiditis. 3. Possible left parathyroid adenoma. Recommend correlation with serum calcium levels and if indicated, nuclear medicine or CT parathyroid imaging could be performed for further assessment. ACR TI-RADS definitions and recommendations: TI-RADS 1 (benign): 0 points. FNA not needed. TI-RADS 2 (not suspicious): 2 points. FNA not needed. TI-RADS 3 (mildly suspicious): 3 points. * FNA if 2.5 cm or larger, follow up if 1.5 cm or larger (at 1, 3, and 5 years). TI-RADS 4 (moderately suspicious): 4-6 points. * FNA if 1.5 cm or larger, follow up if 1 cm or larger (at 1, 2, 3, and 5 years). TI-RADS 5 (highly suspicious): 7 points or more. * FNA if 1 cm or larger, follow up if 0.5 cm or larger (every year for 5 years). Dictated by: Jimbo MCADAMS Interpreted: Felipa Matt MD on 04/07/2021 at 17:04 Transcribed by: ELAINE on 04/07/2021 at 17:08 Approved by: Felipa Matt M.D. on 04/07/2021 at 17:56
== END ==
PROVIDERS: Family Provider Nurse Practitioner; PCP Nurse Practitioner; Referring Provider Nurse Practitioner; Visit Provider Nurse Practitioner
DX: E06.3 Autoimmune thyroiditis (principal); E04.2 Nontoxic multinodular goiter; E03.8 Other specified hypothyroidism; Z80.8 Family history of malignant neoplasm of other organs or systems
CPT/HCPCS: 76536

== ENCOUNTER → 2021-06-16 08:18 | Outpatient (CLI) | payer MEDICARE, OTHER, SELFPAY ==
--- NOTE | 2021-06-16 | DI.MG.S_ITS ---
BILATERAL DIGITAL SCREENING MAMMOGRAM 3D/2D WITH CAD POST LUMPECTOMY: 06/16/2021 CLINICAL: Routine screening. Personal history of right breast cancer. Family history of breast cancer. Comparison is made to exams dated: 06/14/2020 mammogram, 06/06/2019 mammogram, and 04/01/2018 mammogram - [facility]. The tissue of both breasts is heterogeneously dense. This may lower the sensitivity of mammography. Current study was also evaluated with a Computer Aided Detection (CAD) system. There are benign post operative findings in the right breast. No significant masses, calcifications, or other findings are seen in either breast. There has been no significant interval change. IMPRESSION: BENIGN There is no mammographic evidence of malignancy. A 1 year screening mammogram is recommended. This exam was interpreted at Station ID: [id number]. NOTE: For mammograms, a report in lay terms will be sent to the patient. Approximately 15% of breast malignancies will not be visualized mammographically. In the management of a palpable breast mass, a negative mammogram must not discourage biopsy of a clinically suspicious lesion. Electronically Signed By: Manpreet Arteaga M.D., jr/melchor:06/16/2021 11:52:22 letter sent: Normal Exam ACR BI-RADS Category 2: Benign Finding(s) 3342F
== END ==
PROVIDERS: Family Provider Nurse Practitioner; PCP Nurse Practitioner; Referring Provider Nurse Practitioner; Visit Provider Nurse Practitioner
DX: Z12.31 Encounter for screening mammogram for malignant neoplasm of breast (principal); Z85.3 Personal history of malignant neoplasm of breast; Z80.3 Family history of malignant neoplasm of breast
CPT/HCPCS: 77063; 77067

== ENCOUNTER → 2021-07-08 08:59 | Outpatient (CLI) | payer MEDICARE, OTHER, SELFPAY ==
[2021-07-08 09:48] LABS: Add Manual Diff / Slide Review NO; Basophils Absolute Auto 0 /uL (0-100); Basophils Percent Auto 0.9 % (0-2); Eosinophils Absolute Auto 100 /uL (0-450); Eosinophils Percent Auto 1.8 % (2-4); Hematocrit 39.2 % (36-46); Hemoglobin 13.2 g/dL (12.0-16.0); Lymphocytes Absolute Auto 1300 /uL (1100-4500); Lymphocytes Percent Auto 31.3 % (25-40); Mean Corpuscular HGB Conc 33.7 % (30-36); Mean Corpuscular Hemoglobin 29.8 PG (26-34); Mean Corpuscular Volume 88.2 fL (80-100); Monocytes Absolute Auto 400 /uL (0-900); Monocytes Percent Auto 9.7 % (3-14); Neutrophils Absolute Auto 2400 /uL (1500-7000); Neutrophils Percent Auto 56.3 % (50-75); Platelet Count 236 X10^3/uL (150-400); Red Blood Cell Count 4.44 X10^6/uL (4.0-5.2); Red Cell Distribution Width 13.8 % (11.6-14.8); White Blood Cell Count 4.2 X10^3/uL (4.5-11.0)
[2021-07-08 10:31] LABS: HEMOLYSIS < 15 (0-50); Iron 124 ug/dL (37-170)
[2021-07-08 10:42] LABS: Percent Iron Saturation 39 % (15-50); Total Iron Binding Capacity 314 ug/dL (265-497); Transferrin 245 mg/dL (206-381)
[2021-07-08 10:43] LABS: Alanine Aminotransferase 17 IU/L (<35); Albumin 4.2 g/dL (3.5-5.0); Albumin Globulin Ratio 1.4 (1.0-2.8); Alkaline Phosphatase 73 U/L (38-126); Aspartate Aminotransferase 30 IU/L (14-36); BUN Creatinine Ratio 14.9 (6-22); Bilirubin Total 0.8 mg/dL (0.2-1.3); Blood Urea Nitrogen 14 mg/dL (7-17); Calcium 9.4 mg/dL (8.4-10.2); Carbon Dioxide 28 mmol/L (22-32); Chloride 102 mmol/L (98-107); Cholesterol 239 mg/dL (140-199); Estimated Glomerular Filt Rate 58.9 mL/min (>60); Glucose 88 mg/dL (80-110); HDL Cholesterol 71 mg/dL (40-60); HEMOLYSIS < 15 (0-50); LDL Cholesterol Calculated 147 mg/dL (<100); Sodium 136 mmol/L (137-145); Total Protein 7.2 g/dL (6.3-8.2); Triglycerides 104 mg/dL (35-150)
[2021-07-08 10:48] LABS: Free T3, Triiodothyronine Free 3.52 pg/mL (2.77-5.27); Free T4, Direct Thyroxine 1.48 ng/dL (0.78-2.19)
[2021-07-08 10:53] LABS: Vitamin D 25 Hydroxy (D3) 45.6 ng/mL (30.0-100.0)
[2021-07-08 11:01] LABS: Thyroid Stimulating Hormone 0.941 uIU/mL (0.47-4.68)
[2021-07-08 11:31] LABS: Vitamin B12 543 pg/mL (239-931)
[2021-07-09 09:16] LABS: Thyroid Peroxidase Antibodies 214 IU/mL (0-34)
[2021-07-09 09:17] LABS: Calcium 9.5 mg/dL (8.7-10.3); Parathyroid Hormone, Intact 32 pg/mL (15-65)
[2021-07-09 13:10] LABS: Selenium 116 ug/L (93-198)
[2021-07-09 22:07] LABS: Anti Thyroglobulin Antibody 2.4 IU/mL (0.0-0.9)
[2021-07-10 08:36] LABS: Homocysteine 9.6 umol/L (0.0-17.2)
[2021-07-10 18:19] LABS: Zinc,RBC 1139 ug/dL (878-1660)
[2021-07-16 12:36] LABS: Triiodothyronine T3 Reverse 32.2 ng/dL (9.2-24.1)
== END ==
PROVIDERS: Family Provider Nurse Practitioner; PCP Nurse Practitioner; Referring Provider Nurse Practitioner; Visit Provider Nurse Practitioner
DX: D35.1 Benign neoplasm of parathyroid gland (principal); E78.5 Hyperlipidemia, unspecified; E06.3 Autoimmune thyroiditis; Z79.899 Other long term (current) drug therapy; I10 Essential (primary) hypertension; E03.8 Other specified hypothyroidism; R53.1 Weakness; R53.83 Other fatigue
CPT/HCPCS: 36415; 80053; 80061; 82306; 82310; 82607; 83090; 83540; 83550; 83970; 84255; 84439; 84443; 84481; 84482; 84630; 85025; 86376; 86800

== ENCOUNTER → 2021-07-18 10:51 | Outpatient (CLI) | payer MEDICARE, OTHER, SELFPAY ==
[2021-07-18 12:11] LABS: BUN Creatinine Ratio 12.8 (6-22); Blood Urea Nitrogen 10 mg/dL (7-17); Estimated Glomerular Filt Rate > 60.0 mL/min (>60)
== END ==
PROVIDERS: Family Provider Nurse Practitioner; PCP Nurse Practitioner; Referring Provider Nurse Practitioner; Visit Provider Nurse Practitioner
DX: R94.4 Abnormal results of kidney function studies (principal)
CPT/HCPCS: 36415; 82565; 84520

== ENCOUNTER → 2021-07-28 09:30 | Outpatient (CLI) | payer MEDICARE, OTHER, SELFPAY | PROVIDERS: Family Provider Nurse Practitioner; PCP Nurse Practitioner; Referring Provider Nurse Practitioner; Visit Provider Nurse Practitioner | DX: M85.88 Other specified disorders of bone density and structure, other site (principal); Z78.0 Asymptomatic menopausal state; E07.9 Disorder of thyroid, unspecified; Z85.3 Personal history of malignant neoplasm of breast; Z90.722 Acquired absence of ovaries, bilateral | CPT/HCPCS: 77080 ==

== ENCOUNTER → 2021-07-31 10:42 | Outpatient (CLI) | payer MEDICARE, OTHER, SELFPAY ==
[2021-07-31 11:28] LABS: Add Manual Diff / Slide Review NO; Basophils Absolute Auto 0 /uL (0-100); Eosinophils Absolute Auto 100 /uL (0-450); Eosinophils Percent Auto 1.7 % (2-4); Hematocrit 38.6 % (36-46); Hemoglobin 13.1 g/dL (12.0-16.0); Lymphocytes Absolute Auto 1500 /uL (1100-4500); Lymphocytes Percent Auto 31.1 % (25-40); Mean Corpuscular HGB Conc 33.9 % (30-36); Mean Corpuscular Hemoglobin 30.1 PG (26-34); Mean Corpuscular Volume 88.7 fL (80-100); Monocytes Absolute Auto 500 /uL (0-900); Monocytes Percent Auto 10.9 % (3-14); Neutrophils Absolute Auto 2600 /uL (1500-7000); Neutrophils Percent Auto 55.3 % (50-75); Platelet Count 213 X10^3/uL (150-400); Red Blood Cell Count 4.35 X10^6/uL (4.0-5.2); Red Cell Distribution Width 13.4 % (11.6-14.8); White Blood Cell Count 4.7 X10^3/uL (4.5-11.0)
[2021-07-31 11:53] LABS: NT-proBNP (BNP-Adult 18+) 209 pg/mL (<125)
[2021-07-31 13:36] LABS: Appearance Urine UA CLEAR; Bilirubin Urine UA NEGATIVE (NEGATIVE); Color Urine UA YELLOW; Glucose Urine UA NEGATIVE (Negative); Ketones Urine UA NEGATIVE (NEGATIVE); Leukocyte Esterase Urine UA 2+ (NEGATIVE); Nitrite Urine UA NEGATIVE (Negative); Occult Blood Urine UA TRACE-INTACT (Negative); Protein Urine UA NEGATIVE (Negative); Specific Gravity Urine UA <=1.005 (1.000-1.035); Urobilinogen Urine UA 0.2 E.U./dL (0.2)
[2021-07-31 13:40] LABS: Bacteria Urine None Seen; Culture Indicated Urine Cult Not Indicated; RBC Urine 0-1/HPF (0-5/HPF); Squamous Epithelial Cell Urine 5-10 /HPF (0-5/HPF); WBC Urine 5-10/HPF (0-5/HPF)
== END ==
PROVIDERS: Family Provider Nurse Practitioner; PCP Nurse Practitioner; Referring Provider Internal Medicine Cardiovascular Disease; Visit Provider Internal Medicine Cardiovascular Disease
DX: I10 Essential (primary) hypertension (principal); R06.02 Shortness of breath; R30.0 Dysuria
CPT/HCPCS: 36415; 81001; 83880; 85025

== ENCOUNTER → 2021-08-06 08:52 | Outpatient (CLI) | payer MEDICARE, OTHER, SELFPAY ==
[2021-08-06 10:02] LABS: COVID19 -Nasal RAPID Negative (Negative)
== END ==
PROVIDERS: Family Provider Nurse Practitioner; PCP Nurse Practitioner; Referring Provider Internal Medicine; Visit Provider Internal Medicine
DX: Z20.822 Contact with and (suspected) exposure to COVID-19 (principal)
CPT/HCPCS: 87635; C9803

== ENCOUNTER → 2021-08-07 08:55 | Outpatient (CLI) | payer MEDICARE, OTHER, SELFPAY ==
--- NOTE | 2021-08-13 08:44 | PM.PFT.1 ---
Pulmonary Function Test Referral & Results Date Patient Seen: 08/07/21 Requesting provider: Andres Enciso Results: The spirometry demonstrates an FVC of 3.32 L which is 88% of predicted. The FEV1 was measured at 2.09 L which is 73% of predicted. The FEV1/FVC ratio was 63 which is 82% of predicted. Following the administration of bronchodilator there was no appreciable change Lung volumes show an SVC of 3.32 L which is 96% of predicted. The diffusing capacity was measured at 20.33 which is 62% of predicted. No hemoglobin value was provided, so no correction for potential anemia could be made, if appropriate. The maximum voluntary ventilation was reduced Interpretation: This study demonstrates perhaps mild obstructive lung disease based on reduction FEV1 and minimal reduction FEV1/FVC ratio. There is really no notable evidence of benefit following bronchodilator Lung volumes are normal Diffusing capacity is minimally reduced suggesting disease at the capillary alveolar level as well Clinical correlation suggested
== END ==
PROVIDERS: Family Provider Nurse Practitioner; PCP Nurse Practitioner; Referring Provider Internal Medicine Cardiovascular Disease; Visit Provider Internal Medicine Cardiovascular Disease
DX: R06.02 Shortness of breath (principal); J98.8 Other specified respiratory disorders
CPT/HCPCS: 94060; 94726; 94729

== ENCOUNTER → 2021-08-12 12:05 | Outpatient (CLI) | payer MEDICARE, OTHER, SELFPAY ==
--- NOTE | 2021-08-12 12:06 | DI.RAD.S_ITS ---
PROCEDURE: XR KUB INDICATIONS: pain right flank TECHNIQUE: One view of the abdomen acquired. COMPARISON: None. FINDINGS: Surgical changes and devices: None. Bowel: Bowel gas pattern is normal. Soft tissues: No suspicious abdominal calcifications. Visualized solid organ contours appear normal in size. Bones: No suspicious bony lesions. IMPRESSION: No acute process. Dictated by: Milan Ritchie M.D. on 08/12/2021 at 14:10 Approved by: Milan Ritchie M.D. on 08/12/2021 at 14:10
== END ==
PROVIDERS: Family Provider Nurse Practitioner; PCP Nurse Practitioner; Referring Provider Nurse Practitioner; Visit Provider Nurse Practitioner
DX: R10.9 Unspecified abdominal pain (principal)
CPT/HCPCS: 74018

== ENCOUNTER → 2021-09-26 09:21 | Outpatient (CLI) | payer MEDICARE, OTHER, SELFPAY ==
[2021-09-26 11:18] LABS: BUN Creatinine Ratio 18.1 (6-22); Blood Urea Nitrogen 15 mg/dL (7-17); Carbon Dioxide 30 mmol/L (22-32); Chloride 99 mmol/L (98-107); Estimated Glomerular Filt Rate > 60.0 mL/min (>60); Glucose 88 mg/dL (80-110); HEMOLYSIS < 15 (0-50); Potassium 4.3 mmol/L (3.4-5.1); Sodium 134 mmol/L (137-145)
== END ==
PROVIDERS: Family Provider Nurse Practitioner; PCP Nurse Practitioner; Referring Provider Internal Medicine Cardiovascular Disease; Visit Provider Internal Medicine Cardiovascular Disease
DX: I10 Essential (primary) hypertension (principal)
CPT/HCPCS: 36415; 80048

== ENCOUNTER → 2021-10-23 08:50 | Outpatient (CLI) | payer MEDICARE, OTHER, SELFPAY ==
[2021-10-23 10:18] LABS: Free T3, Triiodothyronine Free 3.52 pg/mL (2.77-5.27)
[2021-10-23 10:31] LABS: Thyroid Stimulating Hormone 1.77 uIU/mL (0.47-4.68)
[2021-10-24 06:28] LABS: Thyroid Peroxidase Antibodies 161 IU/mL (0-34)
== END ==
PROVIDERS: Family Provider Nurse Practitioner; PCP Nurse Practitioner; Referring Provider Nurse Practitioner; Visit Provider Nurse Practitioner
DX: E03.8 Other specified hypothyroidism (principal); E06.3 Autoimmune thyroiditis
CPT/HCPCS: 36415; 84439; 84443; 84481; 86376

== ENCOUNTER → 2021-12-01 11:43 | Outpatient (CLI) | payer MEDICARE, OTHER, SELFPAY ==
[2021-12-01 12:55] LABS: BUN Creatinine Ratio 18.6 (6-22); Blood Urea Nitrogen 19 mg/dL (7-17); Calcium 9.1 mg/dL (8.4-10.2); Carbon Dioxide 24 mmol/L (22-32); Chloride 105 mmol/L (98-107); Estimated Glomerular Filt Rate 59 mL/min (>60); Glucose 94 mg/dL (80-110); HEMOLYSIS < 15 (0-50); Potassium 3.9 mmol/L (3.4-5.1); Sodium 134 mmol/L (137-145)
[2021-12-01 13:04] LABS: NT-proBNP (BNP-Adult 18+) 245 pg/mL (<125)
== END ==
PROVIDERS: Family Provider Nurse Practitioner; PCP Nurse Practitioner; Referring Provider Internal Medicine Cardiovascular Disease; Visit Provider Internal Medicine Cardiovascular Disease
DX: R06.00 Dyspnea, unspecified (principal)
CPT/HCPCS: 36415; 80048; 83880

== ENCOUNTER → 2021-12-16 10:33 | Outpatient (CLI) | payer MEDICARE, OTHER, SELFPAY ==
[2021-12-16 12:36] LABS: BUN Creatinine Ratio 14.7 (6-22); Blood Urea Nitrogen 15 mg/dL (7-17); Calcium 9.1 mg/dL (8.4-10.2); Carbon Dioxide 28 mmol/L (22-32); Chloride 100 mmol/L (98-107); Estimated Glomerular Filt Rate 59 mL/min (>60); Glucose 73 mg/dL (80-110); HEMOLYSIS < 15 (0-50); Potassium 4.8 mmol/L (3.4-5.1); Sodium 136 mmol/L (137-145)
== END ==
PROVIDERS: Family Provider Nurse Practitioner; PCP Nurse Practitioner; Referring Provider Internal Medicine Cardiovascular Disease; Visit Provider Internal Medicine Cardiovascular Disease
DX: R06.00 Dyspnea, unspecified (principal); I10 Essential (primary) hypertension
CPT/HCPCS: 36415; 80048

== ENCOUNTER 2021-12-29 09:01 | Emergency (ER) | payer MEDICARE, OTHER, SELFPAY ==
[2021-12-29] VITALS (8 sets, daily range): BP systolic 147–173; BP diastolic 74–93; PULSE 75; RESP 14–28; O2SAT 95–100; BMI 25.8
--- NOTE | 2021-12-29 09:14 | DI.RAD.S_ITS ---
PROCEDURE: XR CHEST 1V INDICATIONS: chest pain TECHNIQUE: One view of the chest was acquired. COMPARISON: [facility], CR, XR CHEST 1V, 03/12/2020, 12:55. FINDINGS: Surgical changes and devices: Left chest wall pacer is seen with intact leads. Lungs and pleura: Lungs are clear. No pleural effusions or pneumothorax. Mediastinum: Mediastinal contours appear normal. Heart size is normal. Bones and chest wall: No suspicious bony lesions. Overlying soft tissues appear unremarkable. IMPRESSION: No acute cardiopulmonary abnormality. Dictated by: Michael Little M.D. on 12/29/2021 at 8:39 Approved by: Michael Little M.D. on 12/29/2021 at 8:40
[2021-12-29 09:23] LABS: Add Manual Diff / Slide Review NO; Basophils Absolute Auto 0 /uL (0-100); Basophils Percent Auto 0.9 % (0-2); Eosinophils Absolute Auto 100 /uL (0-450); Eosinophils Percent Auto 1.1 % (2-4); Hematocrit 40.1 % (36-46); Hemoglobin 13.6 g/dL (12.0-16.0); Lymphocytes Absolute Auto 1400 /uL (1100-4500); Lymphocytes Percent Auto 29.6 % (25-40); Mean Corpuscular HGB Conc 33.9 % (30-36); Mean Corpuscular Hemoglobin 29.8 PG (26-34); Mean Corpuscular Volume 87.9 fL (80-100); Monocytes Absolute Auto 500 /uL (0-900); Neutrophils Absolute Auto 2600 /uL (1500-7000); Neutrophils Percent Auto 57.4 % (50-75); Platelet Count 276 X10^3/uL (150-400); Red Blood Cell Count 4.56 X10^6/uL (4.0-5.2); Red Cell Distribution Width 13.3 % (11.6-14.8); White Blood Cell Count 4.6 X10^3/uL (4.5-11.0)
[2021-12-29 09:33] LABS: Alanine Aminotransferase 26 IU/L (<35); Albumin 4.4 g/dL (3.5-5.0); Albumin Globulin Ratio 1.5 (1.0-2.8); Alkaline Phosphatase 74 U/L (38-126); Aspartate Aminotransferase 38 IU/L (14-36); BUN Creatinine Ratio 13.9 (6-22); Bilirubin Total 0.6 mg/dL (0.2-1.3); Blood Urea Nitrogen 16 mg/dL (7-17); Calcium 9.2 mg/dL (8.4-10.2); Carbon Dioxide 26 mmol/L (22-32); Chloride 100 mmol/L (98-107); Creatine Kinase 55 U/L (30-135); Estimated Glomerular Filt Rate 51 mL/min (>60); Glucose 101 mg/dL (80-110); HEMOLYSIS < 15 (0-50); Lipase 81 U/L (23-300); Potassium 3.3 mmol/L (3.4-5.1); Sodium 135 mmol/L (137-145); Total Protein 7.4 g/dL (6.3-8.2)
[2021-12-29 09:45] LABS: Troponin I < 0.012 ng/mL (0.01-0.034)
--- NOTE | 2021-12-29 10:13 | ED.WEAKNESS ---
HPI - Weakness General Chief complaint: Shortness of Breath/Dyspnea Stated complaint: Dizzy, hot, low bp Time Seen by Provider: 12/29/21 09:21 Source: patient and family Mode of arrival: Wheelchair History of Present Illness HPI Narrative: Patient is a 71-year-old female who has significant past medical history of for hypothyroid, exercise-induced asthma, sick sinus syndrome with pacemaker presenting today with low blood pressure. Records actual report that she has had low blood pressures in October. She was previously on Liothyronine and levothyroxine, she also is on chlorthalidone for water retention. Last week they increase the frequency of that medication as well. She was previously on it 4 days a week now she is on it 5 days a week. 3 nights ago she was in the kitchen making dinner she got very lightheaded and dizzy blood pressure was in the 90s. He says he lay down and eventually went away. She stopped taking her thyroid medication (ashwaganda), which she looked up and can cause hypo tension. She said she was fine the last 2 days and till this morning. This morning she was getting up she showers she got dressed she was is ready to go to the holiday P rate which is very dizzy lightheaded felt like she might pass out. She took her blood pressure systolic was in the 70s multiple times. She also states that she is short of breath than normal. She was at pulmonary rehab, 5 days ago his did write hard workout there they had started to notice that her blood pressure is little bit low in the 90s all the following day it was low again. She also was started on Ashwaganda last week as well. Related Data Home Medications Medication Instructions Recorded Confirmed calcium carbonate 600 mg-vitamin 1 tab PO BID 07/30/21 07/30/21 D3 10 mcg (400 unit) tablet (Calcium 600 + D(3)) chlorthalidone 25 mg tablet 12.5 mg PO Q OTHER DAY 10/30/21 10/30/21 potassium chloride 10 mEq 10 meq PO .QOD 10/30/21 10/30/21 capsule,extended release Previous Rx's Medication Instructions Recorded alendronate 70 mg tablet (Fosamax) 70 mg PO QWEEK #12 tabs 07/30/21 levothyroxine 50 mcg tablet 50 mcg PO DAILY #90 tabs 11/03/21 liothyronine 5 mcg tablet 5 mcg PO DAILY #90 tabs 11/03/21 Allergies Allergy/AdvReac Type Severity Reaction Status Date / Time COVID-19 Virus Vaccines Allergy Severe Difficulty Verified 12/29/21 09:13 Breathing polyethylene glycol AdvReac Intermediate Difficulty Verified 12/29/21 09:13 Breathing spironolactone AdvReac Intermediate Hives Verified 12/29/21 09:13 chemo IV medication, unknown Allergy Severe unable to Uncoded 12/29/21 09:13 name breath Review of Systems Review of Systems Narrative: GENERAL: Denies chills, fatigue, malaise, fever, sweats, travel HEENT: Denies sinus pain, ear pain, sore throat, difficulty swallowing, neck pain RESPIRATORY: Denies dyspnea, cough, wheezing, hemoptysis, sputum. CARDIOVASCULAR: See HPI GASTROINTESTINAL: Denies nausea, vomiting, abdominal pain, diarrhea, constipation, melena. : Denies dysuria, frequency, incontinence, hematuria, urinary retention, flank pain. MUSCULOSKELETAL: Denies weakness, joint pain, or bony pain SKIN: No rash, no erythema, no pruritus NEUROLOGIC: Denies weakness, dizziness, headache, numbness, change in speech, confusion PSYCHIATRIC: No concerning psychosocial issues. 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 Measles (~1956) Migraines (~2006) Mumps (~1957) Ocular migraine Osteopenia after menopause Osteopenia with high risk of fracture (~2004) Ovarian cyst (~1993) Pacemaker Polyethylene glycol adverse reaction Second-degree heart block Transient global amnesia (~2008) Vertigo (~07/13/19) Vitamin D deficiency Surgical History Anesthesia H/O total hysterectomy (~10/1993) History of laminectomy (~08/1996) History of lumpectomy (~07/2003) Family History Father Diabetes mellitus History of heart disease Hypertension Stroke Mother Hypertension Dementia Brother Dementia Brother Cancer Hypertension History of heart disease Brother Hypertension Grandfather History of heart disease Grandmother Tuberculosis Grandfather TBI (traumatic brain injury) Grandmother History of heart disease Social History Smoking Status: Never smoker Smoking Status: Never smoker alcohol intake frequency: 0-2 drinks per day Substance Use Type: does not use Exam Initial Vital Signs Initial Vital Signs: Vital Signs Pulse Rate 75 12/29/21 09:10 Respiratory Rate 23 12/29/21 09:10 Blood Pressure 173/93 H 12/29/21 09:10 Pulse Oximetry 100 12/29/21 09:10 Oxygen Delivery Method 12/29/21 09:10 GENERAL: Alert female and in no acute distress. HEENT: Head atraumatic,EOMI, pupils reactive, face symmetric, moist mucous membranes CARDIOVASCULAR: Regular rate and rhythm without murmurs, rubs or gallops. RESPIRATORY: Breath sounds equal bilaterally, no wheezes rales or rhonchi. ABDOMEN: Soft, nontender. Normoactive bowel sounds all 4 quadrants. No guarding or rebound. EXTREMITIES: Normal range of motion, no clubbing or edema. Neurovascularly intact NEUROLOGICAL: Alert and oriented x4.Normal gait and speech. SKIN: Warm, dry, no laceration, no petechiae, no rashes or lesions. Course Orders Ordered: Discontinued Medications Albuterol/Ipratropium (Albuterol/Ipratropium 3 Ml Ampul) 3 ml INH NOW ONE Stop: 12/29/21 10:09 Last Admin: 12/29/21 10:19 Dose: 3 ml Documented By: SEVERIANO Vital Signs Vital signs: Vital Signs - 8 hr 12/29/21 10:30 12/29/21 10:30 12/29/21 11:24 Pulse Rate 75 Respiratory Rate 18 Blood Pressure 172/81 H 153/91 H Pulse Oximetry 100 12/29/21 11:24 12/29/21 11:30 12/29/21 11:30 Pulse Rate 75 75 Respiratory Rate 19 14 Blood Pressure 147/74 H Pulse Oximetry 98 97 MDM - Weakness Lab Data Result diagrams: 12/29/21 09:15 07/04/22 09:15 Labs: Lab Results 12/29/21 12/29/21 12/29/21 Range/Units 09:15 09:15 09:15 WBC 4.6 (4.5-11.0) X10^3/uL RBC 4.56 (4.0-5.2) X10^6/uL Hgb 13.6 (12.0-16.0) g/dL Hct 40.1 (36-46) % MCV 87.9 (80-100) fL MCH 29.8 (26-34) PG MCHC 33.9 (30-36) % RDW 13.3 (11.6-14.8) % Plt Count 276 (150-400) X10^3/uL Neut % (Auto) 57.4 (50-75) % Lymph % (Auto) 29.6 (25-40) % [place] % (Auto) 11.0 (3-14) % Eos % (Auto) 1.1 L (2-4) % Baso % (Auto) 0.9 (0-2) % Neut # (Auto) 2600 (9008-4085) /uL Lymph # (Auto) 1400 (5746-9734) /uL [place] # (Auto) 500 (0-900) /uL Eos # (Auto) 100 (0-450) /uL Baso # (Auto) 0 (0-100) /uL D-Dimer < 200 (<230) ng/mL Sodium 135 L (137-145) mmol/L Potassium 3.3 L (3.4-5.1) mmol/L Chloride 100 (98-107) mmol/L Carbon Dioxide 26 (22-32) mmol/L BUN 16 (7-17) mg/dL Creatinine 1.15 H (0.52-1.04) mg/dL Estimated GFR 51 L (>60) mL/min BUN/Creatinine Ratio 13.9 (6-22) Glucose 101 (80-110) mg/dL Calcium 9.2 (8.4-10.2) mg/dL Magnesium 2.0 (1.6-2.3) mg/dL Total Bilirubin 0.6 (0.2-1.3) mg/dL AST 38 H (14-36) IU/L ALT 26 (<35) IU/L Alkaline Phosphatase 74 (38-126) U/L Total Creatine Kinase 55 (30-135) U/L CK-MB (CK-2) TNP CK-MB (CK-2) Rel Index TNP Troponin I < 0.012 (0.01-0.034) ng/mL NT-Pro-B Natriuret Pep (<125) pg/mL Total Protein 7.4 (6.3-8.2) g/dL Albumin 4.4 (3.5-5.0) g/dL Globulin 3.0 (1.7-4.1) g/dL Albumin/Globulin Ratio 1.5 (1.0-2.8) Lipase 81 (23-300) U/L 12/29/21 Range/Units 09:15 WBC (4.5-11.0) X10^3/uL RBC (4.0-5.2) X10^6/uL Hgb (12.0-16.0) g/dL Hct (36-46) % MCV (80-100) fL MCH (26-34) PG MCHC (30-36) % RDW (11.6-14.8) % Plt Count (150-400) X10^3/uL Neut % (Auto) (50-75) % Lymph % (Auto) (25-40) % [place] % (Auto) (3-14) % Eos % (Auto) (2-4) % Baso % (Auto) (0-2) % Neut # (Auto) (5790-9009) /uL Lymph # (Auto) (3715-5436) /uL [place] # (Auto) (0-900) /uL Eos # (Auto) (0-450) /uL Baso # (Auto) (0-100) /uL D-Dimer (<230) ng/mL Sodium (137-145) mmol/L Potassium (3.4-5.1) mmol/L Chloride (98-107) mmol/L Carbon Dioxide (22-32) mmol/L BUN (7-17) mg/dL Creatinine (0.52-1.04) mg/dL Estimated GFR (>60) mL/min BUN/Creatinine Ratio (6-22) Glucose (80-110) mg/dL Calcium (8.4-10.2) mg/dL Magnesium (1.6-2.3) mg/dL Total Bilirubin (0.2-1.3) mg/dL AST (14-36) IU/L ALT (<35) IU/L Alkaline Phosphatase (38-126) U/L Total Creatine Kinase (30-135) U/L CK-MB (CK-2) CK-MB (CK-2) Rel Index Troponin I (0.01-0.034) ng/mL NT-Pro-B Natriuret Pep 188 H (<125) pg/mL Total Protein (6.3-8.2) g/dL Albumin (3.5-5.0) g/dL Globulin (1.7-4.1) g/dL Albumin/Globulin Ratio (1.0-2.8) Lipase (23-300) U/L Imaging Data Chest x-ray: Radiologist Impression: XRay Report Signed Patient: Myra Patten MR#: [id number] : 1950 Acct:[id number] Age/Sex: 71 / F Date of Service: 12/29/21 Loc: ED Accession Number: [id number] ?? Procedure: XR chest 1V Ordering Provider: Keila Chopra D.O. PROCEDURE:? XR CHEST 1V ? INDICATIONS:? chest pain ? TECHNIQUE:? One view of the chest was acquired.? ? COMPARISON:? [facility], , XR CHEST 1V, 03/12/2020, 12:55. ? FINDINGS:? ? Surgical changes and devices:? Left chest wall pacer is seen with intact leads. ? Lungs and pleura:? Lungs are clear.? No pleural effusions or pneumothorax.? ? Mediastinum:? Mediastinal contours appear normal.? Heart size is normal.? ? Bones and chest wall:? No suspicious bony lesions.? Overlying soft tissues appear unremarkable.? ? IMPRESSION:? No acute cardiopulmonary abnormality. ? ? ? Dictated by: Michael Little M.D. on 12/29/2021 at 8:39? ECG Data Interpretation: Paced rhythm rate 75 MT interval 182 QRS [address] changes or T-wave inversions MDM Narrative Medical decision making narrative: Patient blood pressure is good now that she is in the emergency department. In fact slightly hypertensive. She is having increasing shortness of breath with intermittent episodes of hypotension. tHis may be due to increased chlorthalidone possibly due from thyroid medication. She has reports according to PCP notes in October of low blood pressures then as well. She is taking Liothyronine, which actually can cause hypotension along with increased chlorthalidone last week. At this time I recommend she stop taking this medication discussed with her PCP as an return her chlorthalidone back to 4 days week she certainly does not have any evidence of fluid overload her D-dimer is negative her chest x-ray is clear. She was given albuterol treatment here in the ED which did not seem to help her much. Her increased shortness of breath is likely due to her ongoing chronic pulmonary issues. Discharge Plan Departure Patient Disposition: Home Clinical Impression: Hypotension Instructions: Orthostatic Hypotension Activity Restrictions/Additional Instructions: *You have been diagnosed with low blood pressure *What to do: At this time I think she low blood pressure is due to your thyroid medication Liothyronine Be sure to increase fluid in intake *Continue to take medications as directed Resume chlorthalidone 4 times a week as previously prescribed Stop taking Liothyronine *Follow up with your primary care provider in 2-3 days or call [phone] *Return to ER if you should have increasing dizziness lightheadedness persistent low blood pressure or any new, worsening or concerning symptoms Prescriptions: No Action levothyroxine 50 mcg tablet 50 mcg PO DAILY Qty: 90 1RF liothyronine 5 mcg tablet 5 mcg PO DAILY Qty: 90 1RF calcium carbonate-vitamin D3 [Calcium 600 + D(3)] 600 mg-10 mcg (400 unit) tablet 1 tab PO BID alendronate [Fosamax] 70 mg tablet 70 mg PO QWEEK Qty: 12 3RF Rx Instructions: Take weekly on an empty stomach >/=30 mins prior to first meal of the day chlorthalidone 25 mg tablet 12.5 mg PO Q OTHER DAY potassium chloride 10 mEq capsule, extended release 10 meq PO .QOD Rx Instructions: Taken with chlorthalidone Referrals: Queta Carmen ARNP [Primary Care Provider] - Visit Report Forms: Patient Portal/API
[2021-12-29] MEDS: ALBUTEROL/IPRATROPIUM 3 ML AMPUL INH (10:19)
[2021-12-29 10:24] LABS: D Dimer < 200 ng/mL (<230)
[2021-12-29 10:35] LABS: NT-proBNP (BNP-Adult 18+) 188 pg/mL (<125)
== END 2021-12-29 11:52 | disposition home or self-care (01) ==
PROVIDERS: Emergency Provider Emergency Medicine; Family Provider Nurse Practitioner; PCP Nurse Practitioner
DX: I95.9 Hypotension, unspecified (principal); R42 Dizziness and giddiness; R07.9 Chest pain, unspecified; Z95.0 Presence of cardiac pacemaker
CPT/HCPCS: 36415; 71045; 80053; 82550; 83690; 83735; 83880; 84484; 85025; 85379; 93005; 93010; 94640; 99284

== ENCOUNTER → 2022-01-12 07:44 | Outpatient (CLI) | payer MEDICARE, OTHER, SELFPAY ==
[2022-01-12 10:10] LABS: BUN Creatinine Ratio 16.1 (6-22); Blood Urea Nitrogen 14 mg/dL (7-17); Calcium 8.8 mg/dL (8.4-10.2); Carbon Dioxide 28 mmol/L (22-32); Chloride 104 mmol/L (98-107); Estimated Glomerular Filt Rate > 60 mL/min (>60); Glucose 81 mg/dL (80-110); HEMOLYSIS < 15 (0-50); Magnesium 2.2 mg/dL (1.6-2.3); Potassium 4.2 mmol/L (3.4-5.1); Sodium 138 mmol/L (137-145)
== END ==
PROVIDERS: Family Provider Nurse Practitioner; PCP Nurse Practitioner; Referring Provider Internal Medicine Cardiovascular Disease; Visit Provider Internal Medicine Cardiovascular Disease
DX: I10 Essential (primary) hypertension (principal)
CPT/HCPCS: 36415; 80048; 83735

== ENCOUNTER 2022-01-22 10:15 | Outpatient (RCR) | payer MEDICARE, OTHER, SELFPAY | END 2022-01-22 14:15 | LOC: PUL 10:15 | PROVIDERS: Family Provider Nurse Practitioner; PCP Nurse Practitioner; Visit Provider Nurse Practitioner | DX: J44.9 Chronic obstructive pulmonary disease, unspecified (principal) | CPT/HCPCS: G0237; G0238 ==

== ENCOUNTER → 2022-02-04 08:01 | Outpatient (CLI) | payer MEDICARE, OTHER, SELFPAY ==
[2022-02-04 09:52] LABS: Free T3, Triiodothyronine Free 3.67 pg/mL (2.77-5.27); Free T4, Direct Thyroxine 1.22 ng/dL (0.78-2.19)
[2022-02-04 10:05] LABS: Thyroid Stimulating Hormone 2.86 uIU/mL (0.47-4.68)
[2022-02-04 22:11] LABS: Thyroid Peroxidase Antibodies 165 IU/mL (0-34)
== END ==
PROVIDERS: Family Provider Nurse Practitioner; PCP Nurse Practitioner; Referring Provider Nurse Practitioner; Visit Provider Nurse Practitioner
DX: E03.8 Other specified hypothyroidism (principal); E06.3 Autoimmune thyroiditis
CPT/HCPCS: 36415; 84439; 84443; 84481; 86376

== ENCOUNTER → 2022-04-08 09:51 | Outpatient (CLI) | payer MEDICARE, OTHER, SELFPAY ==
--- NOTE | 2022-04-08 09:53 | DI.US.S_ITS ---
PROCEDURE: US THYROID INDICATIONS: 1 year survaillance TECHNIQUE: Real-time scanning was performed of the thyroid gland, with image documentation. COMPARISON: [facility], US, US THYROID, 04/07/2021, 12:15. FINDINGS: Right: Thyroid lobe measures 4.7 x 1.2 x 1.6 cm, and is slightly heterogeneous in echotexture. Left: Thyroid lobe measures 4.0 x 1.6 x 1.3 cm, and is mildly heterogeneous in echotexture. Isthmus: Two mm thick. Color Doppler demonstrates diffusely increased vascularity throughout the gland, similar compared to the prior study. Nodule number: 1 Location: Left inferior pole Size: 0.8 x 0.5 x 0.5 cm. Previously 0.8 x 0.5 x 0.5 cm, stable. Composition: Solid Echogenicity: Isoechoic Shape: wider than tall. Margins: Smooth Echogenic foci: None Total points: Three ACR TI-RADS category: Three, mildly suspicious Nodule number: 2 Location: Right midpole Size: 0.9 x 0.5 x 0.5 cm, previously 0.9 x 0.5 x 0.5 cm. Composition: Solid Echogenicity: Hyperechoic Shape: wider than tall. Margins: Smooth Echogenic foci: None Total points: Three ACR TI-RADS category: Three, mildly suspicious There are two nodules immediately inferior to the right thyroid gland measuring 0.5 and 0.4 cm, the larger demonstrates echotexture of a fatty hilum. Color Doppler suggests hilar vascularity. There is a mildly prominent lateral compartment lymph node measuring 5 mm in short axis, also with a fatty hilum. Caudal to the left thyroid lobe, there is a hypoechoic taller than wide oval nodule is slightly irregular margins measuring 0.6 x 0.7 x 0.8 cm, previously 0.6 x 0.5 x 0.6 cm. This also demonstrates of a slightly hyperechoic hilum and increased hilar vascularity. There are normal lymph nodes in the lateral compartment of the left neck. IMPRESSION: 1. Heterogeneous and hypervascular thyroid gland suggesting thyroiditis. 2. Stable, single, mildly suspicious nodules in each thyroid gland. 3. Tiny hypoechoic nodules caudal to each thyroid lobe, most likely lymph nodes, less likely parathyroid adenoma. Correlate with PTH. There has been minimal size change since the prior study. ACR TI-RADS definitions and recommendations: TI-RADS 1 (benign): 0 points. FNA not needed. TI-RADS 2 (not suspicious): 2 points. FNA not needed. TI-RADS 3 (mildly suspicious): 3 points. * FNA if 2.5 cm or larger, follow up if 1.5 cm or larger (at 1, 3, and 5 years). TI-RADS 4 (moderately suspicious): 4-6 points. * FNA if 1.5 cm or larger, follow up if 1 cm or larger (at 1, 2, 3, and 5 years). TI-RADS 5 (highly suspicious): 7 points or more. * FNA if 1 cm or larger, follow up if 0.5 cm or larger (every year for 5 years). Dictated by: Hamida Green M.D. on 04/08/2022 at 12:55 Approved by: Hamida Green M.D. on 04/08/2022 at 13:05
== END ==
PROVIDERS: Family Provider Nurse Practitioner; PCP Nurse Practitioner; Referring Provider Nurse Practitioner; Visit Provider Nurse Practitioner
DX: E06.3 Autoimmune thyroiditis (principal); E04.2 Nontoxic multinodular goiter
CPT/HCPCS: 76536

== ENCOUNTER → 2022-06-17 09:48 | Outpatient (CLI) | payer MEDICARE, OTHER, SELFPAY ==
--- NOTE | 2022-06-17 | DI.MG.S_ITS ---
BILATERAL DIGITAL SCREENING MAMMOGRAM 3D/2D WITH CAD: 06/17/2022 CLINICAL: Routine screening. Personal history of right breast cancer. Family history of breast cancer. Comparison is made to exams dated: 06/14/2020 mammogram, 06/16/2021 mammogram, and 06/06/2019 mammogram - [facility]. Both breasts are heterogeneously dense, which may obscure small masses (category c / 51-75% glandular tissue). Current study was also evaluated with a Computer Aided Detection (CAD) system. There are benign post operative findings in the right breast. No significant masses, calcifications, or other findings are seen in either breast. There has been no significant interval change. IMPRESSION: BENIGN There is no mammographic evidence of malignancy. A 1 year screening mammogram is recommended. This exam was interpreted at Station ID: [id number]. NOTE: For mammograms, a report in lay terms will be sent to the patient. Approximately 15% of breast malignancies will not be visualized mammographically. In the management of a palpable breast mass, a negative mammogram must not discourage biopsy of a clinically suspicious lesion. Electronically Signed By: Manpreet Arteaga M.D., jr/melchor:06/17/2022 10:24:45 letter sent: Normal Exam ACR BI-RADS Category 2: Benign Finding(s) 3342F
== END ==
PROVIDERS: Family Provider Nurse Practitioner; PCP Nurse Practitioner; Referring Provider Nurse Practitioner; Visit Provider Nurse Practitioner
DX: Z12.31 Encounter for screening mammogram for malignant neoplasm of breast (principal); Z85.3 Personal history of malignant neoplasm of breast; Z80.3 Family history of malignant neoplasm of breast
CPT/HCPCS: 77063; 77067

== ENCOUNTER → 2022-06-18 08:38 | Outpatient (CLI) | payer MEDICARE, OTHER, SELFPAY ==
[2022-06-18 09:53] LABS: Free T4, Direct Thyroxine 1.11 ng/dL (0.78-2.19)
[2022-06-18 10:06] LABS: Thyroid Stimulating Hormone 4.95 uIU/mL (0.47-4.68)
[2022-06-20 02:13] LABS: Calcium 9.1 mg/dL (8.7-10.3); Parathyroid Hormone, Intact 42 pg/mL (15-65)
== END ==
PROVIDERS: Family Provider Nurse Practitioner; PCP Nurse Practitioner; Referring Provider Nurse Practitioner; Visit Provider Nurse Practitioner
DX: E03.8 Other specified hypothyroidism (principal); E06.3 Autoimmune thyroiditis; D35.1 Benign neoplasm of parathyroid gland; R93.89 Abnormal findings on diagnostic imaging of other specified body structures
CPT/HCPCS: 36415; 82310; 83970; 84439; 84443; 84481

== ENCOUNTER → 2022-09-18 08:18 | Outpatient (CLI) | payer MEDICARE, OTHER, SELFPAY ==
--- NOTE | 2022-09-18 | DI.ECHO.S_ITS ---
[place] +---------+ [facility] +---------+ : : [address] : : : : [id number] : : : : Phone: [phone] Echocardiogram Report + + :Name: XAVIER WILKINS Study Date: 09/18/2022 Height: 70 in : :[facility] ReadingLocation: Weight: 185 lb : : Gender: Female BSA: 2.0 m2 : :: 1950 Age: 71 yrs BP: 138/86 mmHg: :Reason For Study: SHORTNESS OF BREATH HR: 75 : :Ordering Physician: FAITH, : :YEMI Performed By: MARIANN SINGH : :Referring: YEMI CUEVAS : + + Interpretation Summary The left ventricle is normal in size. The ejection fraction is estimated to be 65-70%. This is unchanged compared to the previous study. Diastolic parameters suggest a relaxation abnormality of the left ventricle, consistent with probable normal filling pressures. The right ventricle is normal in size and function. There is mild mitral regurgitation. Compared to the prior echo study, there has been a decrease in the severity of mitral regurgitation. Previously mild to moderate MR. There is mild tricuspid regurgitation. Previously mild to moderate TR. Compared to the prior echo exam, there has been a decrease in TR severity. The right ventricular systolic pressure is estimated to be at least 26 mmHg based on an estimated right atrial pressure of 3 mm Hg. Previous 41 mmHg. Compared to the prior echo exam, there has been a decrease in the severity of pulmonary hypertension. Procedure: A two-dimensional transthoracic echocardiogram with color flow and Doppler was performed. The study quality was technically adequate. The patient was in normal sinus rhythm during the exam. Left Ventricle: The left ventricle is normal in size. Proximal septal thickening is noted. There is no echo evidence for significant left ventricular outflow tract obstruction. There is no thrombus. The ejection fraction is estimated to be 65-70%. This is unchanged compared to the previous study. There are no focal wall motion abnormalities. Diastolic parameters suggest a relaxation abnormality of the left ventricle, consistent with probable normal filling pressures. Right Ventricle: The right ventricle is normal in size and function. Atria: The left atrium is mildly dilated. The left atrium has significantly decreased in size since the prior echo exam. The right atrium is mildly dilated. There is no Doppler evidence for an interatrial shunt. Mitral Valve: The mitral valve leaflets appear mildly thickened, but open well. The mitral valve leaflets are slightly calcified. There is mild mitral annular calcification. There is mild mitral regurgitation. Compared to the prior echo study, there has been a decrease in the severity of mitral regurgitation. Aortic Valve: The aortic valve is trileaflet. The aortic valve opens well. The aortic valve is mildly calcified. There is no aortic valve stenosis. No aortic regurgitation is present. Tricuspid Valve: The tricuspid valve is normal. There is mild tricuspid regurgitation. The right ventricular systolic pressure is estimated to be at least 26 mmHg based on an estimated right atrial pressure of 3 mm Hg. Compared to the prior echo exam, there has been a decrease in TR severity. Compared to the prior echo exam, there has been a decrease in the severity of pulmonary hypertension. Pulmonic Valve: The pulmonic valve leaflets are thin and pliable; valve motion is normal. There is no pulmonic valvular regurgitation. Great Vessels: The aortic root is normal size. The ascending aorta is normal in size. The IVC is of normal diameter and collapses greater than 50% with a sniff. This suggests a low right atrial pressure of 3 mm Hg. Pericardium/ Pleura There is no pericardial effusion. There is no pleural effusion. MMode/2D Measurements & Calculations LVIDd: 4.0 cm LVOT diam: 2.1 cm LVIDs: 2.5 cm Ao root diam: 3.6 cm FS: 36.4 % asc Aorta Diam: 3.6 cm IVSd: 1.1 cm LVPWd: 1.1 cm LV boucher. diameter/BSA (cm/m^2): 2.0 LV sys. diameter/BSA (cm/m^2): 1.3 LA A2 area: 19.0 cm2 RA long axis: 5.0 cm LA A4 area: 25.2 cm2 RA area: 16.0 cm2 LA length (vol): 6.1 cm RA vol: 43.6 ml LA vol: 67.1 ml RA : 21.6 ml/m2 LA vol index: 33.3 ml/m2 RVD1 (basal): 4.0 cm TAPSE: 1.8 cm Doppler Measurements & Calculations Ao V2 max: 114.2 cm/sec LVOT Max Dennis: 98.0 cm/sec Ao V2 mean: 87.8 cm/sec LV V1 max P.8 mmHg Ao max P.2 mmHg LV V1 VTI: 23.9 cm Ao mean P.3 mmHg LUIS(I,D): 3.6 cm2 Ao V2 VTI: 24.1 cm LUIS(V,D): 3.1 cm2 sev ratio: 0.99 LUIS indexed to BSA (cm^2/m^2): 1.8 MV E max dennis: 54.5 cm/sec TR max dennis: 239.7 cm/sec MV A max dennis: 75.2 cm/sec TR max P.0 mmHg MV E/A: 0.72 PA V2 max: 89.7 cm/sec Med Peak E' Dennis: 6.3 cm/sec PA V2 mean: 68.5 cm/sec E/E' med: 8.6 PA mean P.0 mmHg Lat Peak E' Dennis: 7.2 cm/sec PA pr(Accel): 41.3 mmHg E/E' lat: 7.6 E/e' average: 8.1 MV dec time: 0.28 sec SV(LVOT): 86.2 ml Reading Physician:04:35 PM
[2022-09-18 10:08] LABS: Alanine Aminotransferase 27 IU/L (<35); Albumin Globulin Ratio 1.4 (1.0-2.8); Alkaline Phosphatase 83 U/L (38-126); Aspartate Aminotransferase 31 IU/L (14-36); BUN Creatinine Ratio 18.5 (6-22); Bilirubin Total 0.8 mg/dL (0.2-1.3); Blood Urea Nitrogen 15 mg/dL (7-17); Calcium 8.7 mg/dL (8.4-10.2); Carbon Dioxide 29 mmol/L (22-32); Chloride 100 mmol/L (98-107); Estimated Glomerular Filt Rate > 60 mL/min (>60); Globulin 2.8 g/dL (1.7-4.1); Glucose 91 mg/dL (80-110); HEMOLYSIS < 15 (0-50); Potassium 3.9 mmol/L (3.4-5.1); Sodium 135 mmol/L (137-145); Total Protein 6.8 g/dL (6.3-8.2)
[2022-09-18 10:20] LABS: Free T3, Triiodothyronine Free 3.74 pg/mL (2.77-5.27); Free T4, Direct Thyroxine 1.35 ng/dL (0.78-2.19)
[2022-09-18 10:33] LABS: Thyroid Stimulating Hormone 1.58 uIU/mL (0.47-4.68)
[2022-09-21 11:12] LABS: Cholesterol, Total 227 mg/dL (100-199); HDL-Cholesterol 76 mg/dL (>39); LDL Particle 1272 nmol/L (<1000); LDL Size 21.7 nm (>20.5); LDL-Cholsterol 132 mg/dL (0-99); LP-IR Score 30 (<=45); Small LDL- Particle 153 nmol/L (<=527); Triglycerides 111 mg/dL (0-149)
[2022-09-28 12:54] LABS: Triiodothyronine T3 Reverse 23.8
== END ==
PROVIDERS: Nurse Practitioner; Family Provider Nurse Practitioner; PCP Nurse Practitioner; Referring Provider Internal Medicine Cardiovascular Disease; Visit Provider Internal Medicine Cardiovascular Disease
DX: E78.5 Hyperlipidemia, unspecified (principal); I10 Essential (primary) hypertension; R06.02 Shortness of breath; E03.8 Other specified hypothyroidism; E06.3 Autoimmune thyroiditis; Z95.0 Presence of cardiac pacemaker; I34.0 Nonrheumatic mitral (valve) insufficiency; I07.1 Rheumatic tricuspid insufficiency
CPT/HCPCS: 36415; 80053; 80061; 83704; 84439; 84443; 84481; 84482; 93306

== ENCOUNTER → 2022-10-24 09:31 | Outpatient (CLI) | payer MEDICARE, OTHER, SELFPAY ==
[2022-10-24 10:16] LABS: Blood Urea Nitrogen 16 mg/dL (7-17); Calcium 8.8 mg/dL (8.4-10.2); Carbon Dioxide 28 mmol/L (22-32); Chloride 104 mmol/L (98-107); Estimated Glomerular Filt Rate > 60 mL/min (>60); Glucose 95 mg/dL (80-110); HEMOLYSIS < 15 (0-50); Potassium 4.3 mmol/L (3.4-5.1); Sodium 137 mmol/L (137-145)
== END ==
PROVIDERS: Family Provider Nurse Practitioner; PCP Nurse Practitioner; Referring Provider Nurse Practitioner Acute Care; Visit Provider Nurse Practitioner Acute Care
DX: I10 Essential (primary) hypertension (principal)
CPT/HCPCS: 36415; 80048

== ENCOUNTER → 2022-12-17 14:46 | Outpatient (CLI) | payer MEDICARE, OTHER, SELFPAY ==
[2022-12-17 17:16] LABS: BUN Creatinine Ratio 16.3 (6-22); Blood Urea Nitrogen 15 mg/dL (7-17); Calcium 8.8 mg/dL (8.4-10.2); Carbon Dioxide 28 mmol/L (22-32); Chloride 101 mmol/L (98-107); Estimated Glomerular Filt Rate > 60 mL/min (>60); Glucose 83 mg/dL (80-110); HEMOLYSIS < 15 (0-50); Potassium 4.7 mmol/L (3.4-5.1); Sodium 138 mmol/L (137-145)
== END ==
PROVIDERS: Family Provider Nurse Practitioner; PCP Nurse Practitioner; Referring Provider Nurse Practitioner Acute Care; Visit Provider Nurse Practitioner Acute Care
DX: I10 Essential (primary) hypertension (principal)
CPT/HCPCS: 36415; 80048

== ENCOUNTER → 2023-04-09 08:23 | Outpatient (CLI) | payer MEDICARE, OTHER, SELFPAY ==
[2023-04-09 09:20] LABS: Cholesterol 175 mg/dL (140-199); HDL Cholesterol 67 mg/dL (40-60); LDL Cholesterol Calculated 92 mg/dL (<100); Triglycerides 80 mg/dL (35-150)
[2023-04-09 10:13] LABS: Free T3, Triiodothyronine Free 3.63 pg/mL (2.77-5.27); Free T4, Direct Thyroxine 1.48 ng/dL (0.78-2.19)
[2023-04-09 10:26] LABS: Thyroid Stimulating Hormone 2.62 uIU/mL (0.47-4.68)
[2023-04-09 11:29] LABS: Appearance Urine UA CLOUDY; Bilirubin Urine UA NEGATIVE (NEGATIVE); Color Urine UA YELLOW; Glucose Urine UA NEGATIVE (Negative); Ketones Urine UA NEGATIVE (NEGATIVE); Leukocyte Esterase Urine UA 3+ (NEGATIVE); Nitrite Urine UA NEGATIVE (Negative); Occult Blood Urine UA TRACE-INTACT (Negative); Protein Urine UA NEGATIVE (Negative); Specific Gravity Urine UA <=1.005 (1.000-1.035)
[2023-04-09 11:39] LABS: Bacteria Urine Many (>30); Culture Indicated Urine Specimen Cultured; RBC Urine 5-10/HPF (0-5/HPF); Squamous Epithelial Cell Urine 10-30 /HPF (0-5/HPF); WBC Urine 30-100/HPF (0-5/HPF)
== END ==
PROVIDERS: Nurse Practitioner Acute Care; Family Provider Nurse Practitioner; PCP Nurse Practitioner; Referring Provider Nurse Practitioner; Visit Provider Nurse Practitioner
DX: E78.5 Hyperlipidemia, unspecified (principal); E03.8 Other specified hypothyroidism; E06.3 Autoimmune thyroiditis; R32 Unspecified urinary incontinence
CPT/HCPCS: 36415; 80061; 81003; 81015; 84439; 84443; 84481; 87086

== ENCOUNTER → 2023-04-12 15:39 | Outpatient (CLI) | payer MEDICARE, OTHER, SELFPAY ==
[2023-04-12 18:38] LABS: Appearance Urine UA CLEAR; Bilirubin Urine UA NEGATIVE (NEGATIVE); Color Urine UA YELLOW; Glucose Urine UA NEGATIVE (Negative); Ketones Urine UA NEGATIVE (NEGATIVE); Leukocyte Esterase Urine UA TRACE (NEGATIVE); Nitrite Urine UA NEGATIVE (Negative); Occult Blood Urine UA NEGATIVE (Negative); Protein Urine UA NEGATIVE (Negative); Specific Gravity Urine UA <=1.005 (1.000-1.035); Urobilinogen Urine UA 0.2 E.U./dL (0.2)
[2023-04-12 20:02] LABS: Bacteria Urine None Seen; Culture Indicated Urine Specimen Cultured; RBC Urine None Seen (0-5/HPF); Squamous Epithelial Cell Urine None Seen (0-5/HPF); WBC Urine None Seen (0-5/HPF)
[2023-04-12 20:03] LABS: Urine Comments Low Volume (<10mL)
== END ==
PROVIDERS: Family Provider Nurse Practitioner; PCP Nurse Practitioner; Visit Provider Family Medicine
DX: R31.9 Hematuria, unspecified (principal)
CPT/HCPCS: 81001; 87086

== ENCOUNTER → 2023-06-04 10:36 | Outpatient (CLI) | payer MEDICARE, OTHER, SELFPAY ==
[2023-06-04 11:39] LABS: Influenza A - CEPHEID Flu A NEGATIVE (NEGATIVE); Influenza B - CEPHEID Flu B NEGATIVE (NEGATIVE); Respiratory Syncytial Virus Negative (Negative)
[2023-06-04 11:41] LABS: COVID-19 CEPHEID 4-PLEX PCR Negative (Negative)
== END ==
PROVIDERS: Family Provider Nurse Practitioner; PCP Nurse Practitioner; Visit Provider Physician Assistant
DX: R05.1 Acute cough (principal)
CPT/HCPCS: 0241U

== ENCOUNTER → 2023-06-07 11:59 | Outpatient (CLI) | payer MEDICARE, OTHER, SELFPAY ==
--- NOTE | 2023-06-07 12:01 | DI.RAD.S_ITS ---
PROCEDURE: XR CHEST 2V INDICATIONS: Cough worsening x 8 days TECHNIQUE: 2 views of the chest were acquired. COMPARISON: [facility], , XR CHEST 1V, 12/29/2021, 9:16. FINDINGS: Surgical changes and devices: Left chest wall pacemaker electrodes terminate in expected positions. Lungs and pleura: Lungs are clear. No pleural effusions or pneumothorax. Mediastinum: Mediastinal contours are normal. Heart size is normal. Bones and chest wall: No suspicious bony abnormalities. Soft tissues appear unremarkable. Mild multilevel degenerative changes of the spine. Surgical clips in the right breast. IMPRESSION: No acute cardiopulmonary process. Dictated by: Mary Avila M.D. on 06/07/2023 at 12:21 Approved by: Mary Avila M.D. on 06/07/2023 at 12:22
== END ==
PROVIDERS: Family Provider Nurse Practitioner; PCP Nurse Practitioner; Referring Provider Physician Assistant; Visit Provider Physician Assistant
DX: J06.9 Acute upper respiratory infection, unspecified (principal)
CPT/HCPCS: 71046

== ENCOUNTER 2023-06-09 10:08 | Inpatient (IN) | payer MEDICARE, OTHER, SELFPAY ==
[2023-06-09] VITALS (20 sets, daily range): BP systolic 105–133; BP diastolic 55–71; PULSE 75–93; RESP 12–25; TEMP 36.3–37.3; O2SAT 88–97; BMI 27.2
--- NOTE | 2023-06-09 10:18 | DI.RAD.S_ITS ---
PROCEDURE: XR CHEST 1V INDICATIONS: Shortness of breath TECHNIQUE: One view of the chest was acquired. COMPARISON: [facility], CT, CT HIGH RESOLUTION CHEST, 09/17/2021, 9:28. [facility], CR, XR CHEST 2V, 06/07/2023, 12:01. FINDINGS: Surgical changes and devices: Left pacemaker with right atrial and right ventricular leads. Right axillary clips. Lungs and pleura: Lungs are clear. No pleural effusions or pneumothorax. Mediastinum: Mediastinal contours appear normal. Heart size is normal. Bones and chest wall: No suspicious bony lesions. Overlying soft tissues appear unremarkable. IMPRESSION: No acute cardiopulmonary abnormality is seen. Dictated by: Zak Mcclure M.D. on 06/09/2023 at 10:33 Approved by: Zak Mcclure M.D. on 06/09/2023 at 10:35
[2023-06-09 10:46] LABS: Add Manual Diff / Slide Review NO; Basophils Absolute Auto 0 /uL (0-100); Basophils Percent Auto 0.3 % (0-2); Eosinophils Absolute Auto 100 /uL (0-450); Eosinophils Percent Auto 0.4 % (2-4); Hematocrit 35.5 % (36-46); Hemoglobin 11.9 g/dL (12.0-16.0); Lymphocytes Absolute Auto 700 /uL (1100-4500); Lymphocytes Percent Auto 4.9 % (25-40); Mean Corpuscular HGB Conc 33.5 % (30-36); Mean Corpuscular Hemoglobin 30.1 PG (26-34); Mean Corpuscular Volume 89.7 fL (80-100); Monocytes Absolute Auto 1400 /uL (0-900); Monocytes Percent Auto 9.4 % (3-14); Neutrophils Absolute Auto 12700 /uL (1500-7000); Platelet Count 314 X10^3/uL (150-400); Red Blood Cell Count 3.96 X10^6/uL (4.0-5.2); Red Cell Distribution Width 13.3 % (11.6-14.8)
[2023-06-09 10:53] LABS: INR 1.5 (0.9-1.3); Prothrombin Time 16.9 SECONDS (9.4-12.5)
[2023-06-09 11:00] LABS: Alanine Aminotransferase 45 IU/L (<35); Albumin 3.5 g/dL (3.5-5.0); Albumin Globulin Ratio 1.1 (1.0-2.8); Alkaline Phosphatase 126 U/L (38-126); Aspartate Aminotransferase 55 IU/L (14-36); BUN Creatinine Ratio 12.9 (6-22); Bilirubin Total 1.4 mg/dL (0.2-1.3); Blood Urea Nitrogen 13 mg/dL (7-17); Calcium 9.1 mg/dL (8.4-10.2); Carbon Dioxide 29 mmol/L (22-32); Chloride 93 mmol/L (98-107); Estimated Glomerular Filt Rate 59 mL/min (>60); Globulin 3.3 g/dL (1.7-4.1); Glucose 112 mg/dL (80-110); HEMOLYSIS < 15 (0-50); Lactate (Lactic Acid) 1.8 mmol/L (0.7-2.1); Potassium 3.6 mmol/L (3.4-5.1); Sodium 130 mmol/L (137-145); Total Protein 6.8 g/dL (6.3-8.2)
[2023-06-09 11:11] LABS: NT-proBNP (BNP-Adult 18+) 1730 pg/mL (<125); Troponin I < 0.012 ng/mL (0.01-0.034)
--- NOTE | 2023-06-09 14:36 | ED.GENADULT ---
HPI - General Adult General Chief complaint: Shortness of Breath/Dyspnea Stated complaint: resp issues breathing worse loss of voice Time Seen by Provider: 06/09/23 10:49 Source: patient Mode of arrival: Ambulatory History of Present Illness HPI narrative: 72-year-old woman with a history pacemaker, breast cancer in 2003, hypothyroidism, hypothyroidism, hypertension, hyperlipidemia who presents complaining that she is feeling unwell. She was seen on June 04 at the walk-in clinic complaining of 5 days of cough and congestion. COVID/flu/RSV testing were negative at that time. She was given codeine cough syrup for sleep and to suppress her cough. She was seen again on June 07 complaining of increasing fever and medications ?stopping working last night?. Complains of low-grade fever, productive cough that is getting worse and generally continuing to decline. Over the last 24 hours she is noted saturations as low as 83% at home. She reports some chest heaviness but no palpitations. No nausea vomiting or diarrhea no abdominal pain. No headaches. She is significantly fatigued because of the dramatic and persistent cough. Related Data Home Medications Medication Instructions Recorded Confirmed Low Dose Naltrexone 4.5 mg PO DAILY 04/08/22 06/09/23 losartan 25 mg tablet 25 mg PO DAILY 04/12/23 06/09/23 rosuvastatin 5 mg tablet 5 mg PO .QD 04/12/23 06/09/23 Previous Rx's Medication Instructions Recorded alendronate 70 mg tablet See Rx Instructions .Route 06/18/22 .COMPLEX #12 tabs levothyroxine 75 mcg tablet See Rx Instructions .Route 11/20/22 .COMPLEX #90 tabs benzonatate 100 mg capsule 100 mg PO TID PRN cough #10 caps 06/07/23 codeine 10 mg-guaifenesin 100 mg/5 10 ml PO Q4-6H PRN cough #118 mL 06/07/23 mL oral liquid Allergies Allergy/AdvReac Type Severity Reaction Status Date / Time COVID-19 Virus Vaccines Allergy Severe Difficulty Verified 06/09/23 10:13 Breathing polyethylene glycol AdvReac Intermediate Difficulty Verified 06/09/23 10:13 Breathing spironolactone AdvReac Intermediate Hives Verified 06/09/23 10:13 chemo IV medication, unknown Allergy Severe unable to Uncoded 06/04/23 10:31 name breath Review of Systems Review of Systems Narrative: Pertinent positive and negative findings as per HPI Patient History Medical History Polyethylene glycol adverse reaction Decreased GFR 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 Pacemaker Second-degree heart block Bilateral finger numbness Hypotension Dizziness Constipation Osteopenia after menopause Transient global amnesia (~2008) Migraines (~2006) Ankle fracture (~2016) Mumps (~1957) Measles (~1956) Chicken pox (~1958) Ovarian cyst (~1993) Heavy menstrual period (~1993) Fibroids (~1993) Endometriosis (~1993) Breast cancer (~2003) Osteopenia with high risk of fracture (~2004) Hypothyroidism History of right breast cancer Ocular migraine Vertigo (~07/13/19) Vitamin D deficiency Surgical History Anesthesia History of lumpectomy (~07/2003) History of laminectomy (~08/1996) H/O total hysterectomy (~10/1993) Family History Father Diabetes mellitus History of heart disease Hypertension Stroke Mother Hypertension Dementia Brother Dementia Brother Cancer Hypertension History of heart disease Brother Hypertension Grandfather History of heart disease Grandmother Tuberculosis Grandfather TBI (traumatic brain injury) Grandmother History of heart disease Social History Smoking Status: Never smoker Smoking Status: Never smoker alcohol intake frequency: holidays/special occasions only Substance Use Type: does not use Exam Initial Vital Signs Initial Vital Signs: Vital Signs Temperature 99.1 F 06/09/23 10:13 Pulse Rate 93 H 06/09/23 10:13 Respiratory Rate 18 06/09/23 10:13 Blood Pressure 133/60 06/09/23 10:13 Pulse Oximetry 97 06/09/23 10:13 Oxygen Delivery Method Room Air 06/09/23 10:13 General: Fatigued with persistent cough intermittently productive of yellowish sputum. Able to give a complete and coherent history. Well-nourished well-developed HEENT: Moist mucous membranes, normal sclera with reactive pupils, Neck: No JVD, supple, no cervical adenopathy Respiratory: Lungs are essentially clear, minimal scattered wheezing. Full and symmetrical air movement Cardiac: Regular rate and rhythm no murmurs no bruits Abdomen: Soft, nontender, good bowel tones, no flank pain Skin: Warm and dry, no rashes Neurologic: Grossly neurologically intact with no obvious asymmetries or abnormalities Extremities: No trauma, well perfused Psych: Cooperative, appropriate insight and affect Scores CURB-65 Confusion: No BUN >19mg/dL (>7mmol/L): No Respiratory rate greater or equal to 30: Yes SBP <90mmHg or DBP less or equal to 60mmHg: No Age 65 or Older: Yes CURB-65 Total: 2 Score 0-1 Outpatient care, Score 2 Inpt vs. Obs, Score 3 or over Inpt admit with ICU for score of 4-5 Course Orders Ordered: ED Orders 06/09/23 10:18 XR chest 1V Stat Measure peak expiratory flow ONCE RT Consult Eval and Treat NOW 06/09/23 10:27 Complete Blood Count AUTO DIFF Stat Comprehensive Metabolic Panel Stat Lactate (Lactic Acid) Stat NT-proBNP (BNP-Adult 18+) Stat Prothrombin Time INR Stat Troponin I Stat 06/09/23 10:43 EKG-12 Lead Stat 06/09/23 16:44 Respiratory Panel (Film Array) Stat 06/09/23 16:45 Sputum Culture Stat 06/09/23 16:48 Blood Culture Stat Discontinued Medications Hydrocodone Bitart/Acetaminophen (Hydrocodone/Acet 5/325 Tablet) 1 tab PO NOW ONE Stop: 06/09/23 16:49 Ceftriaxone Sodium 2,000 mg/ (Sodium Chloride) 100 mls @ 200 mls/hr IV NOW ONE Stop: 06/09/23 16:49 Azithromycin 500 mg/ Dextrose 250 mls @ 250 mls/hr IV NOW ONE Stop: 06/09/23 16:49 Vital Signs Vital signs: Vital Signs - 8 hr 06/09/23 10:13 06/09/23 10:49 06/09/23 11:00 Temperature 99.1 F Pulse Rate 93 H 84 81 Respiratory Rate 18 Blood Pressure 133/60 Pulse Oximetry 97 95 89 L Oxygen Delivery Method Room Air 06/09/23 11:11 06/09/23 11:11 06/09/23 11:30 Temperature Pulse Rate 79 Respiratory Rate Blood Pressure 123/55 L 124/58 L Pulse Oximetry Oxygen Delivery Method 06/09/23 11:30 Temperature Pulse Rate 77 Respiratory Rate Blood Pressure Pulse Oximetry 91 Oxygen Delivery Method Medical Decision Making Lab Data 06/09/23 10:27 06/09/23 10:27 Labs: Lab Results 06/09/23 Range/Units 10:27 WBC 15.0 H (4.5-11.0) X10^3/uL RBC 3.96 L (4.0-5.2) X10^6/uL Hgb 11.9 L (12.0-16.0) g/dL Hct 35.5 L (36-46) % MCV 89.7 (80-100) fL MCH 30.1 (26-34) PG MCHC 33.5 (30-36) % RDW 13.3 (11.6-14.8) % Plt Count 314 (150-400) X10^3/uL Neut % (Auto) 85.0 H (50-75) % Lymph % (Auto) 4.9 L (25-40) % [place] % (Auto) 9.4 (3-14) % Eos % (Auto) 0.4 L (2-4) % Baso % (Auto) 0.3 (0-2) % Neut # (Auto) 43990 H (4826-3768) /uL Lymph # (Auto) 700 L (2081-5272) /uL [place] # (Auto) 1400 H (0-900) /uL Eos # (Auto) 100 (0-450) /uL Baso # (Auto) 0 (0-100) /uL PT 16.9 H (9.4-12.5) SECONDS INR 1.5 H (0.9-1.3) Sodium 130 L (137-145) mmol/L Potassium 3.6 (3.4-5.1) mmol/L Chloride 93 L (98-107) mmol/L Carbon Dioxide 29 (22-32) mmol/L BUN 13 (7-17) mg/dL Creatinine 1.01 (0.52-1.04) mg/dL Estimated GFR 59 L (>60) mL/min BUN/Creatinine Ratio 12.9 (6-22) Glucose 112 H (80-110) mg/dL Lactate 1.8 (0.7-2.1) mmol/L Calcium 9.1 (8.4-10.2) mg/dL Total Bilirubin 1.4 H (0.2-1.3) mg/dL AST 55 H (14-36) IU/L ALT 45 H (<35) IU/L Alkaline Phosphatase 126 (38-126) U/L Troponin I < 0.012 (0.01-0.034) ng/mL NT-Pro-B Natriuret Pep 1730 H (<125) pg/mL Total Protein 6.8 (6.3-8.2) g/dL Albumin 3.5 (3.5-5.0) g/dL Globulin 3.3 (1.7-4.1) g/dL Albumin/Globulin Ratio 1.1 (1.0-2.8) MDM Narrative Medical decision making narrative: CC: Upper respiratory symptoms with cough over the last 10 days becoming progressively worse and now oxygen saturations into the mid to lower 80s at home. Complicating co-morbidities: Distant history of breast cancer, pacemaker, known diastolic dysfunction with no evidence of congestive heart failure with last cardiology evaluation approximately 2 months ago Data collected from: patient, Medical records reviewed: Prior echocardiogram August of 2022. Ejection fraction 65-70%, diastolic relaxation abnormality of the left ventricle consistent with normal filling pressures. Mild mitral regurgitation. Normal right ventricle with pacemaker leads appropriately placed Differential considered: Pneumonia, congestive heart failure, acute coronary syndrome, viral pneumonia, sepsis Exam documented above, pertinent findings include: Significant cough minimal sputum production (we will try to obtain sputum sample), no JVD, crackles or lower extremity edema appreciated. No abdominal pain Lab Test results independently reviewed as above. Pertinent findings: CBC shows a white count at 15,000 with 85% neutrophils. Mild anemia at 11.9 and 35.5 Chemistries show normal creatinine, slightly low sodium at 1:30 a.m.. Bilirubin, AST and a LT are all very minimally elevated with normal alkaline phosphatase. Troponin is undetectable BNP is minimally elevated at 1730 Independently reviewed EKG: Sinus rhythm at a rate of 72. Normal intervals normal axis, no acute ischemic changes Imaging studies independently reviewed: Chest x-ray today does not show cardiomegaly or volume overload. I am concerned for developing infiltrate in the right lower lobe in comparison to chest x-ray from June 07.. Radiology interpretation is that of no acute cardiopulmonary abnormality. Consultations: Case is discussed with the hospitalist. Reviewed her x-ray and real-time and he agrees that it does look like she is developing infiltrates in her bases which is absolutely consistent with her clinical presentation. We discussed CT scan but at this point decided against it as her clinical picture is consistent with a bacterial pneumonia after a viral syndrome. Treatments: Oxygen saturations continued to drop into the mid 80s. She was placed on 2 L of oxygen. She is given oral Vicodin to help with the cough and the pain from persistent coughing over the last 10 days. After blood cultures, lactic acid, and urine samples are obtained will begin ceftriaxone and azithromycin with concerns for developing community-acquired pneumonia with hypoxia. Re-evaluations: Reviewed with the patient the need for hospital admission in light of suspected right lower lobe pneumonia with hypoxia following a viral syndrome. Discussion: 72-year-old woman with 10 days of upper respiratory symptoms now with increasingly productive cough, elevated white count, oxygen saturations into the low 80s with no prior history of pulmonary abnormalities. She is doing well on 2 L of oxygen at this time. Care is reviewed with the hospitalist and patient will be admitted. She will be given ceftriaxone and azithromycin here in the emergency department. She is not meeting sepsis criteria and additional fluids are not given in light of the concern for possible congestive heart failure. I do not believe that she is going to need intubation or advanced oxygen requirements this evening and floor admission is going to be appropriate. Her curb 65 score is 2 also suggesting admission. Findings reviewed with the patient and her both of whom are in agreement with admission for continued treatment. Additional Information: Severe Sepsis Criteria [ x ] bacterial source of infection suspected and documented [ ] 2 SIRS Criteria met [ ] HR >90 [x ] RR >20 [ ] fever or hypothermia [ x ] leukocytosis/leukopenia/bandemia [ ] Evidence of at least 1 organ system dysfunction [ ] Lactate > 2 [ ] BP < 90 or MAP <65, >40mm decrease from normal baseline [ ] Creat > 2.0 [ ] T. Bili > 2.0 [ ] platelet count < 100k [ ] altered mental status [ ] mechanical ventilation [ ] provider documentation of severe sepsis Severe Sepsis Determination. the patient has been screened and [ ] DOES meet criteria for severe sepsis [ x ] DOES NOT meet criteria for severe sepsis Goal directed treatment Within 3 hours [ x ] blood cx drawn prior to abx [ x] broad spectrum abx started [x ] lactic acid level checked [ ] lactic redrawn within 6 hours if >2.0 Septic Shock Criteria [ ] lactic > 4 at any time [ ] SBP ,90 or MAP , 65 [ ] documentation of septic shock Time Septic Shock diagnosed: [ ] Septic Shock Determination. the patient has been screened and [ ] DOES meet criteria for septic shock [ x] DOES NOT meet criteria for septic shock Goal directed therapy within 3 hours of septic shock or initial hypotension [ ] 30ml/kg fluid [ ] ABW used [ ] IBW (33.6) used due to BMI > 30 [ ] patient or advocate declining fluid administration after shared decision making conversation Clinical reason for NOT initiating fluid bolus: Within 6 hours (if continued hypotension after fluids or initial lactate >4) [ ] repeat volume status and tissue perfusion assessment documented after fluid bolus was completed at [Date/Time] Must include vital signs, cardiopulmonary exam, capillary refill, peripheral pulse evaluation, skin exam [ ] Initiate vasopressor therapy if persistent hypotension after adequate fluid bolus Discharge Plan Departure Patient Disposition: Admitted as Observation Clinical Impression: Hypoxia, Elevated brain natriuretic peptide (BNP) level Pneumonia Qualifiers: Pneumonia type: due to unspecified organism Laterality: right Lung location: lower lobe of lung Qualified Code(s): J18.9 - Pneumonia, unspecified organism Admit Date/Time: 06/09/23 16:57 Admit Provider: Abraham Aggarwal
[2023-06-09] MEDS: HYDROCODONE/ACET 5/325 TABLET 1 TAB PO (17:12)
[2023-06-09] MEDS: cefTRIAXone 2,000 MG in SODIUM CHLORIDE 0.9% 100 ML 200 MG IV (17:22)
[2023-06-09 18:16] LABS: Adenovirus Not Detected (Not Detect); B. parapertussis Not Detected (Not Detecte); Bordetella pertussis Not Detected (Not Detect); Chlamydophila pneumoniae Not Detected (Not Detect); Coronavirus 229E Not Detected (Not Detect); Coronavirus HKU1 Not Detected (Not Detect); Coronavirus NL 63 Not Detected (Not Detect); Coronavirus OC43 Not Detected (Not Detect); Human Metapneumovirus Not Detected (Not Detect); Human Rhinovirus/Enterovirus Not Detected (Not Detect); Influenza A Not Detected (Not Detect); Influenza B Not Detected (Not Detect); Mycoplasma pneumoniae Not Detected (Not Detect); Parainfluenza Virus 1 Not Detected (Not Detect); Parainfluenza Virus 2 Not Detected (Not Detect); Parainfluenza Virus 3 Not Detected (Not Detect); Parainfluenza Virus 4 Not Detected (Not Detect); Respiratory Syncytial Virus Not Detected (Not Detect); SARS- CoV-2 Not Detected (Not Detecte)
[2023-06-09] MEDS: AZITHROMYCIN 500 MG in DEXTROSE 5% IN WATER 250 ML 250 MG IV (18:16)
[2023-06-09] MEDS: ALBUTEROL/IPRATROPIUM 3 ML AMPUL INH (20:00)
--- NOTE | 2023-06-09 20:54 | P.HP_ITS ---
History of Present Illness History of Present Illness Date Patient Seen: 06/09/23 Time Patient Seen: 20:55 Chief complaint: resp issues breathing worse loss of voice Narrative: The pt is a 72 yo with a hx of SSS with a pacemaker and Osvaldo's who recently traveled to [facility] to see family and grandchild and developed sinus congestion with a cough about 9 days ago. The symptoms progressed to the point the she c/o subjective fevers, productive sputum of yellow, myalgias and most recently severe SOB and dyspnea over the past 3 days. She has a pulse ox at home and states her P-ox was in the 80's today. This causes her to fall today so she came to the ER for evaluation. 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 Pacemaker Second-degree heart block Bilateral finger numbness Hypotension Dizziness Constipation Osteopenia after menopause Transient global amnesia (~2008) Migraines (~2006) Ankle fracture (~2016) Mumps (~1957) Measles (~1956) Chicken pox (~1958) Ovarian cyst (~1993) Heavy menstrual period (~1993) Fibroids (~1993) Endometriosis (~1993) Breast cancer (~2003) Osteopenia with high risk of fracture (~2004) Hypothyroidism History of right breast cancer Ocular migraine Vertigo (~07/13/19) Vitamin D deficiency Surgical History Anesthesia History of lumpectomy (~07/2003) History of laminectomy (~08/1996) H/O total hysterectomy (~10/1993) Family History Father Diabetes mellitus History of heart disease Hypertension Stroke Mother Hypertension Dementia Brother Dementia Brother Cancer Hypertension History of heart disease Brother Hypertension Grandfather History of heart disease Grandmother Tuberculosis Grandfather TBI (traumatic brain injury) Grandmother History of heart disease Social History household members: spouse Smoking Status: Never smoker alcohol intake: never Meds Home Medications and Allergies Home Medications Medication Instructions Recorded Confirmed Type Low Dose Naltrexone 4.5 mg PO DAILY 04/08/22 06/09/23 History alendronate 70 mg tablet See Rx Instructions .Route 06/18/22 06/09/23 Rx .COMPLEX #12 tabs levothyroxine 75 mcg tablet See Rx Instructions .Route 11/20/22 06/09/23 Rx .COMPLEX #90 tabs losartan 25 mg tablet 25 mg PO DAILY 04/12/23 06/09/23 History rosuvastatin 5 mg tablet 5 mg PO .QD 04/12/23 06/09/23 History benzonatate 100 mg capsule 100 mg PO TID PRN cough #10 caps 06/07/23 06/09/23 Rx codeine 10 mg-guaifenesin 100 mg/5 10 ml PO Q4-6H PRN cough #118 mL 06/07/23 06/09/23 Rx mL oral liquid Allergies Allergy/AdvReac Type Severity Reaction Status Date / Time COVID-19 Virus Vaccines Allergy Severe Difficulty Verified 06/09/23 10:13 Breathing polyethylene glycol AdvReac Intermediate Difficulty Verified 06/09/23 10:13 Breathing spironolactone AdvReac Intermediate Hives Verified 06/09/23 10:13 chemo IV medication, unknown Allergy Severe unable to Uncoded 06/04/23 10:31 name breath Exam Vital Signs (past 8 hours): - 06/09/23 13:00 06/09/23 13:30 06/09/23 14:00 Pulse Rate 77 75 75 Respiratory Rate 13 Blood Pressure 108/55 L 111/57 L 111/58 L Pulse Oximetry 94 88 L 95 Oxygen Delivery Method Room Air Room Air Nasal Cannula Oxygen Flow Rate 2 06/09/23 14:30 06/09/23 15:00 06/09/23 15:30 Pulse Rate 75 83 75 Respiratory Rate 06 11 22 Blood Pressure 108/56 L 105/71 115/62 Pulse Oximetry 94 96 96 Oxygen Delivery Method Nasal Cannula Nasal Cannula Nasal Cannula Oxygen Flow Rate 2 2 2 06/09/23 16:00 06/09/23 16:30 06/09/23 17:00 Pulse Rate 75 75 75 Respiratory Rate 21 23 25 H Blood Pressure 122/58 L 128/61 126/59 L Pulse Oximetry 95 95 95 Oxygen Delivery Method Nasal Cannula Nasal Cannula Nasal Cannula Oxygen Flow Rate 2 2 2 06/09/23 18:49 06/09/23 19:45 06/09/23 20:00 Pulse Rate Respiratory Rate Blood Pressure Pulse Oximetry 95 Oxygen Delivery Method Nasal Cannula Nasal Cannula Nasal Cannula Oxygen Flow Rate 2 06/09/23 20:00 06/09/23 20:10 Pulse Rate Respiratory Rate Blood Pressure Pulse Oximetry 88 L 96 Oxygen Delivery Method Nasal Cannula Nasal Cannula Oxygen Flow Rate 1 2 Oxygen Delivery Method Nasal Cannula Oxygen Flow Rate 2 Const General: cooperative, healthy appearing and ill appearing Resp Effort & Inspection: normal respiratory effort Auscultation: crackles Cardio Rate: regular rate Rhythm: regular rhythm GI Inspection: normal to inspection Auscultation: normal bowel sounds Objective Labs 06/09/23 10:27 06/09/23 10:27 Labs: Laboratory Results - last 24 hr 06/09/23 06/09/23 10:27 17:00 WBC 15.0 H RBC 3.96 L Hgb 11.9 L Hct 35.5 L MCV 89.7 MCH 30.1 MCHC 33.5 RDW 13.3 Plt Count 314 Neut % (Auto) 85.0 H Lymph % (Auto) 4.9 L [place] % (Auto) 9.4 Eos % (Auto) 0.4 L Baso % (Auto) 0.3 Neut # (Auto) 59384 H Lymph # (Auto) 700 L [place] # (Auto) 1400 H Eos # (Auto) 100 Baso # (Auto) 0 PT 16.9 H INR 1.5 H Sodium 130 L Potassium 3.6 Chloride 93 L Carbon Dioxide 29 BUN 13 Creatinine 1.01 Estimated GFR 59 L BUN/Creatinine Ratio 12.9 Glucose 112 H Lactate 1.8 Calcium 9.1 Total Bilirubin 1.4 H AST 55 H ALT 45 H Alkaline Phosphatase 126 Troponin I < 0.012 NT-Pro-B Natriuret Pep 1730 H Total Protein 6.8 Albumin 3.5 Globulin 3.3 Albumin/Globulin Ratio 1.1 Chlamy pneumoniae PCR Not detected Adenovirus (PCR) Not detected B.parapertussis DNA PCR Not detected Coronavirus OC43 (PCR) Not detected Coronavirus HKU1 (PCR) Not detected Coronavirus 229E (PCR) Not detected SARS-CoV-2 (PCR) Not detected Coronavirus NL63 (PCR) Not detected Human Metapneumovir PCR Not detected Influenza Type A (PCR) Not detected Influenza Type B (PCR) Not detected M. 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 Currently the pt is on 2 lpm NC, stable oxygenation at this time. CXR reviewed showing infiltrates in the LLL, Viral panel negative for known causes, cough suppressants orders, Home meds reviewed and restarted
[2023-06-09] MEDS: SODIUM CHLORIDE 0.9% 1,000 ML 100 ML IV (22:23)
[2023-06-09] MEDS: LEVOTHYROXINE 75 MCG TABLET PO (22:25)
[2023-06-10 00:40] VITALS: BP 133/74; PULSE 94; RESP 17; TEMP 37; O2SAT 99
[2023-06-10] MEDS: CODEINE/GUAIFENESIN LIQUID 5ML UDC 10 ML PO ×4 (01:27→15:22)
[2023-06-10] MEDS: BENZONATATE 100 MG CAPSULE PO ×2 (01:27→08:36)
[2023-06-10] MEDS: ALBUTEROL/IPRATROPIUM 3 ML AMPUL INH ×2 (01:28→05:24)
[2023-06-10 04:00] VITALS: BP 133/74; PULSE 88; RESP 16; TEMP 36.7; O2SAT 94
--- NOTE | 2023-06-10 06:41 | PC.NURSE ---
Patient was admitted into room 212 from ED with SOB and c/o frequent cough productive of small amt of thick green phlegm. BS decreased t/o with fine crackles LLL. Tessalon Perles given x1 and cough syrup x 2 with some relief of cough. Patient requested RT treatments x 2 during the night for SOB. O2 2L NC on. Patient denies any pain.
[2023-06-10 07:15] VITALS: O2SAT 97
[2023-06-10 08:00] VITALS: BP 129/52; PULSE 81; RESP 18; TEMP 36.6; O2SAT 96; O2SAT 98
[2023-06-10 08:36] VITALS: BP 133/64
[2023-06-10] MEDS: LOSARTAN 25 MG TABLET PO (08:36)
[2023-06-10] MEDS: AZITHROMYCIN 250 MG TABLET PO (08:36)
[2023-06-10] MEDS: ENOXAPARIN 40 MG/0.4 ML SYRINGE SUBCUT (08:36)
[2023-06-10] MEDS: SODIUM CHLORIDE 0.9% 1,000 ML 100 ML IV (09:14)
--- NOTE | 2023-06-10 15:40 | CM.DANOTE ---
Patient is a 72 yo female who was admitted on 06/09/23 for SOB/GLF/Pneumonia. Pt has [employer] for insurance and her PCP is Queta Carmen. EMR was reviewed. Per MD, pt with SOB and GLF and admitted for pneumonia and IV-Abx started and was on 2LO2. Per RN, pt so fatigued and coughing a lot but has been mostly independent in room and does not anticipate any discharge planning needs. SW met briefly bedside with pt and explained role and she confirms she lives in [place] with her spouse and pt quite active and independent and just came back from a trip to [place] to see family. Pt states spouse is also sick with respiratory illness and pt feels if she can get her coughing under control so she can sleep better then she will not have any discharge planning needs. Pt denies any hx of HH or SNF and has not been admitted to the hospital recently. No PT needs identified yet at this time. Plan: SW to follow closely for pt's medical improvement to confirm safe plan of home with spouse when medically stable and any further identified discharge planning needs. MIGUEL ANGEL Metzger Discharge Planning/Care Management Advanced directive, confirm from FAMILY Start: 06/09/23 18:11 Freq: Q24H Status: Active Protocol: Document 06/09/23 18:12 AKP (Rec: 06/09/23 18:12 AKP [id number]) Advance Directive, confirm on record Time 18:12 Person contacted daughter to bring in Copy received No CM Discharge Assessment Start: 06/10/23 15:39 Freq: Status: Active Protocol: Document 06/10/23 15:40 BF (Rec: 06/10/23 15:40 BF [id number]) Discharge Planning Assessment Assigned Cargo Supervisor MIGUEL ANGEL Dyson DPOA/Assigned Designee Name spouse and Dtr Advance Directives? Yes: req. from family Advance Directives on File No History Provided By Patient,Family Member,Medical Record Has Patient been admitted in last 30 No days? Prior Living Arrangements House Household Members spouse Type of transporation used prior to Drives own vehicle admit Independent with ADL's Yes Is patient alert and oriented? Yes Caregiver for Another No Barriers to Discharge No Discharge Plan Home Transportation Arrangement family Referrals Initiated None needed Additional Comment r/o HH Whiteboard Updated in Patient Room with Yes name and ext. # of Cargo Supervisor Review Status In Process Please Provide Date Initial DC 06/10/23 Assessment Was Performed Next Review Type Continued Stay Review
--- NOTE | 2023-06-10 15:47 | P.DS_ITS ---
History of Present Illness History of Present Illness Date Patient Seen: 06/10/23 Time Patient Seen: 15:48 Chief complaint: resp issues breathing worse loss of voice Narrative: Per admitting provider, The pt is a 72 yo with a hx of SSS with a pacemaker and Osvaldo's who recently traveled to [facility] to see family and grandchild and developed sinus congestion with a cough about 9 days ago. The symptoms progressed to the point the she c/o subjective fevers, productive sputum of yellow, myalgias and most recently severe SOB and dyspnea over the past 3 days. She has a pulse ox at home and states her P-ox was in the 80's today. This causes her to fall today so she came to the ER for evaluation. 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 She improved more quickly than expected and the following day she was no longer requiring supplemental oxygen, and had improvement in symptoms. She did have a hoarse voice but overall felt improved. She was continued on augmentin for another 6 days after discharge after getting rocephin and azithromycin empirically here. No other changes to her home medications were recommended on dicharge. Time Spent with Patient Time spent: Greater than 30 minutes Exam Vital Signs (past 8 hours): - 06/10/23 08:00 06/10/23 08:00 06/10/23 08:36 Temperature 97.8 F Pulse Rate 81 Respiratory Rate 18 Blood Pressure 129/52 L 133/64 Pulse Oximetry 96 98 Oxygen Delivery Method Nasal Cannula Oxygen Flow Rate 1 1 Oxygen Delivery Method Nasal Cannula Oxygen Flow Rate 1 Const General: cooperative, healthy appearing and ill appearing Resp Effort & Inspection: normal respiratory effort Auscultation: crackles Cardio Rate: regular rate Rhythm: regular rhythm GI Inspection: normal to inspection Auscultation: normal bowel sounds Objective Labs 06/09/23 10:27 12/13/23 10:27 Labs: Laboratory Results - last 24 hr 06/09/23 17:00 Chlamy pneumoniae PCR Not detected Adenovirus (PCR) Not detected B.parapertussis DNA PCR Not detected Coronavirus OC43 (PCR) Not detected Coronavirus HKU1 (PCR) Not detected Coronavirus 229E (PCR) Not detected SARS-CoV-2 (PCR) Not detected Coronavirus NL63 (PCR) Not detected Human Metapneumovir PCR Not detected Influenza Type A (PCR) Not detected Influenza Type B (PCR) Not detected M. 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 Pacemaker Second-degree heart block Bilateral finger numbness Hypotension Dizziness Constipation Osteopenia after menopause Transient global amnesia (~2008) Migraines (~2006) Ankle fracture (~2016) Mumps (~1957) Measles (~1956) Chicken pox (~1958) Ovarian cyst (~1993) Heavy menstrual period (~1993) Fibroids (~1993) Endometriosis (~1993) Breast cancer (~2003) Osteopenia with high risk of fracture (~2004) Hypothyroidism History of right breast cancer Ocular migraine Vertigo (~07/13/19) Vitamin D deficiency Surgical History Anesthesia History of lumpectomy (~07/2003) History of laminectomy (~08/1996) H/O total hysterectomy (~10/1993) Family History Father Diabetes mellitus History of heart disease Hypertension Stroke Mother Hypertension Dementia Brother Dementia Brother Cancer Hypertension History of heart disease Brother Hypertension Grandfather History of heart disease Grandmother Tuberculosis Grandfather TBI (traumatic brain injury) Grandmother History of heart disease Social History household members: spouse Smoking Status: Never smoker alcohol intake: never Discharge Plan Discharge Plan Patient Disposition: Home Provider Discharge Comment: You were admitted to the hospital with a pneumonia. Improved with antibiotic therapy and supportive care. You are no longer needing oxygen, and are safe to discharge home with continued antibiotic therapy for the next 6 days that was sent to [facility]. Discharge orders & Medications Prescriptions: New amoxicillin-pot clavulanate 875-125 mg tablet 1 tab PO BID 6 Days Qty: 12 0RF codeine-guaifenesin 10-100 mg/5 mL liquid 5 ml PO Q6H PRN (Reason: cough) 7 Days Qty: 120 0RF benzonatate 100 mg capsule 100 mg PO TID PRN (Reason: cough) 10 Days Qty: 30 0RF Continued benzonatate 100 mg capsule 100 mg PO TID PRN (Reason: cough) Qty: 10 0RF codeine-guaifenesin 10-100 mg/5 mL liquid 10 ml PO Q4-6H PRN (Reason: cough) Qty: 118 0RF Low Dose Naltrexone 4.5 mg 4.5 mg PO DAILY alendronate 70 mg tablet See Rx Instructions .ROUTE .COMPLEX Qty: 12 3RF Dose Instruction: TAKE 1 TABLET WEEKLY ON AN EMPTY STOMACH GREATER THAN OR EQUAL TO 30 MINUTES PRIOR TO FIRST MEAL OF THE DAY Rx Instructions: TAKE 1 TABLET WEEKLY ON AN EMPTY STOMACH GREATER THAN OR EQUAL TO 30 MINUTES PRIOR TO FIRST MEAL OF THE DAY levothyroxine 75 mcg tablet See Rx Instructions .ROUTE .COMPLEX Qty: 90 1RF Dose Instruction: TAKE 1 TABLET DAILY Rx Instructions: TAKE 1 TABLET DAILY rosuvastatin 5 mg tablet 5 mg PO .QD Patient Comments: [NO ORIGINAL SIG] losartan 25 mg tablet 25 mg PO DAILY Patient Comments: [NO ORIGINAL SIG] Follow up/Referrals: Queta Carmen ARNP [Primary Care Provider] - Diet/Activity/Treatments Diet: Diet as Tolerated and Regular Activity: As tolerated, no restrictions Visit Report/Discharge Packet Instructions: DI for Pneumonia -- Adult, How to Use Antibiotics Wisely Stand Alone Forms: Patient Portal/API, Stroke Signs & Symptoms Discharge Data Primary Care Provider: Queta Carmen
[2023-06-10 16:00] VITALS: O2SAT 95
== END 2023-06-10 17:16 | disposition home or self-care (01) | DRG 193 ==
LOC: ED 10:49 → AC 17:00
PROVIDERS: Admitting Provider Student in an Organized Health Care Education/Training Program; Emergency Provider Emergency Medicine; Family Provider Nurse Practitioner; PCP Nurse Practitioner; Referring Provider Emergency Medicine; Visit Provider Student in an Organized Health Care Education/Training Program
DX: J15.9 Unspecified bacterial pneumonia (principal); J96.01 Acute respiratory failure with hypoxia; E87.1 Hypo-osmolality and hyponatremia; Z11.52 Encounter for screening for COVID-19; J06.9 Acute upper respiratory infection, unspecified; E06.3 Autoimmune thyroiditis; I10 Essential (primary) hypertension; I49.5 Sick sinus syndrome; Z95.0 Presence of cardiac pacemaker; Z82.49 Family history of ischemic heart disease and other diseases of the circulatory system; Z82.3 Family history of stroke; M85.80 Other specified disorders of bone density and structure, unspecified site; Z85.3 Personal history of malignant neoplasm of breast; Z79.890 Hormone replacement therapy; Z88.5 Allergy status to narcotic agent; Z88.7 Allergy status to serum and vaccine; Z88.8 Allergy status to other drugs, medicaments and biological substances; Z79.83 Long term (current) use of bisphosphonates
CPT/HCPCS: 36415; 71045; 71046; 80053; 83605; 83880; 84484; 85025; 85610; 87040; 87070; 87077; 87185; 87186; 87205; 87633; 93005; 93010; 94640; 94760; 99284; J0696; J1650

== ENCOUNTER → 2023-06-18 10:57 | Outpatient (CLI) | payer MEDICARE, OTHER, SELFPAY ==
[2023-06-09 18:00] VITALS: BMI 27.2
--- NOTE | 2023-06-18 | DI.MG.S_ITS ---
BILATERAL DIGITAL SCREENING MAMMOGRAM 3D/2D WITH CAD: 06/18/2023 CLINICAL: Routine screening. Personal history of right breast cancer. Comparison is made to exams dated: 06/17/2022 mammogram, 06/16/2021 mammogram, and 06/14/2020 mammogram - [facility]. Both breasts are heterogeneously dense, which may obscure small masses (category c / 51-75% glandular tissue). Current study was also evaluated with a Computer Aided Detection (CAD) system. There are benign post operative findings in the right breast. No significant masses, calcifications, or other findings are seen in either breast. There has been no significant interval change. IMPRESSION: BENIGN There is no mammographic evidence of malignancy. A 1 year screening mammogram is recommended. This exam was interpreted at Station ID: [id number]. NOTE: For mammograms, a report in lay terms will be sent to the patient. Approximately 15% of breast malignancies will not be visualized mammographically. In the management of a palpable breast mass, a negative mammogram must not discourage biopsy of a clinically suspicious lesion. Electronically Signed By: Michael Little M.D. acr/penrad:06/18/2023 12:31:29 letter sent: Normal Exam ACR BI-RADS Category 2: Benign Finding(s) 3342F
== END ==
PROVIDERS: Family Provider Nurse Practitioner; PCP Nurse Practitioner; Referring Provider Nurse Practitioner; Visit Provider Nurse Practitioner
DX: Z12.31 Encounter for screening mammogram for malignant neoplasm of breast (principal); Z85.3 Personal history of malignant neoplasm of breast
CPT/HCPCS: 77063; 77067

== ENCOUNTER → 2023-07-29 | Outpatient (CLI) | payer MEDICARE, OTHER, SELFPAY ==
[2023-06-09 18:00] VITALS: BMI 27.2
--- NOTE | 2023-07-29 09:45 | DI.RAD.S_ITS ---
Bone Density Report Name: XAVIER WILKINS Age: 72 Sex: Female Ethnicity: White Date of : 1950 Indication: monitoring treatment; Referring Provider: PARESH TYLER Study: Bone densitometry was performed. Exam Date: July 29, 2023 Accession number: [id number] Bone Density: Region BMD T-score Z-score Classification AP Spine(L2, L3, L4) 0.926 -1.4 0.9 Osteopenia Femoral Neck (Left) 0.755 -0.8 1.1 Normal Total Hip (Left) 0.875 -0.5 1.1 Normal Femoral Neck (Right) 0.727 -1.1 0.8 Osteopenia Total Hip (Right) 0.877 -0.5 1.1 Normal Total Hip Mean 0.876 -0.5 1.1 Normal World Health Organization criteria for BMD impression classify patients as: Normal (T-score at or above -1.0), Osteopenia (T-score between -1.0 and -2.5), or Osteoporosis (T-score at or below -2.5). 10-year Fracture Risk: FRAX not reported because: Treated for osteoporosis Previous Exams: -- Region Exam Age BMD T-score BMD Change BMD Change Date g/cm2 vs Baseline vs Previous -- AP Spine (L2-L4) 07/29/2023 72 0.926 -1.4 -0.030 (-3.2%)# -0.039 (-4.0%)# 07/28/2021 70 0.965 -1.0 0.009 (0.9%) -0.028 (-2.8%)* 07/25/2019 68 0.993 -0.8 0.037 (3.8%)* 0.037 (3.8%)* 05/13/2017 66 0.956 -1.1 Total Hip(Left) 07/29/2023 72 0.875 -0.5 0.001 (0.1%)# -0.015 (-1.7%)# 07/28/2021 70 0.890 -0.4 0.016 (1.8%) 0.029 (3.4%)* 07/25/2019 68 0.861 -0.7 -0.013 (-1.5%) -0.013 (-1.5%) 05/13/2017 66 0.874 -0.6 Total Hip(Right) 07/29/2023 72 0.877 -0.5 0.008 (1.0%)# 0.032 (3.8%)# 07/28/2021 70 0.845 -0.8 -0.024 (-2.8%) 0.009 (1.0%) 07/25/2019 68 0.836 -0.9 -0.033 (-3.7%)* -0.033 (-3.7%)* 05/13/2017 66 0.869 -0.6 -- *Denotes significance at 95% confidence level, LSC for AP Spine = 0.022 g/cm2, LSC for Total Hip = 0.027 g/cm2 Rate of change results reflect vertebral levels common to all scans # Denotes dissimilar scan types or analysis methods Impression: The patient has low bone mass, based on the Total Spine T-score. No significant bone loss was observed. Discussion: PATIENT UNDER TREATMENT WITH NO SIGNIFICANT BMD LOSS SINCE LAST EXAM. In an untreated patient, BMD typically declines with age. A lack of decline or gain is usually a sign that treatment is efficacious and fracture risk is reduced. It is important to ask patients whether they are taking their medications and to encourage continued and appropriate compliance with their osteoporosis therapies to reduce fracture risk. It is also important to review their risk factors and encourage appropriate calcium and vitamin D intakes, exercise, fall prevention and other lifestyle measures. Follow-Up: Consider a repeat BMD and Vertebral Fracture Assessment (VFA) exam in 2 years or sooner if medically necessary, to reassess this patient's status. Reported by: HERBERT HAMMER M.D. on 07/29/2023 10:06:00 AM.
== END ==
PROVIDERS: Family Provider Nurse Practitioner; PCP Nurse Practitioner; Referring Provider Nurse Practitioner; Visit Provider Nurse Practitioner
DX: M81.0 Age-related osteoporosis without current pathological fracture; Z78.0 Asymptomatic menopausal state; Z79.83 Long term (current) use of bisphosphonates
CPT/HCPCS: 77080

== ENCOUNTER → 2023-08-17 08:40 | Outpatient (CLI) | payer MEDICARE, OTHER, SELFPAY ==
[2023-06-09 18:00] VITALS: BMI 27.2
[2023-08-17 09:28] LABS: Add Manual Diff / Slide Review NO; Basophils Absolute Auto 0 /uL (0-100); Basophils Percent Auto 0.8 % (0-2); Eosinophils Absolute Auto 100 /uL (0-450); Eosinophils Percent Auto 1.7 % (2-4); Hematocrit 39.6 % (36-46); Hemoglobin 13.5 g/dL (12.0-16.0); Lymphocytes Absolute Auto 1300 /uL (1100-4500); Lymphocytes Percent Auto 27.2 % (25-40); Mean Corpuscular HGB Conc 33.9 % (30-36); Mean Corpuscular Volume 88.4 fL (80-100); Monocytes Absolute Auto 400 /uL (0-900); Monocytes Percent Auto 8.8 % (3-14); Neutrophils Absolute Auto 2900 /uL (1500-7000); Neutrophils Percent Auto 61.5 % (50-75); Platelet Count 245 X10^3/uL (150-400); Red Blood Cell Count 4.49 X10^6/uL (4.0-5.2); White Blood Cell Count 4.7 X10^3/uL (4.5-11.0)
[2023-08-17 10:02] LABS: Hemoglobin A1C% w Est Avg Glu 5.2 % (4.0-6.0)
[2023-08-17 10:08] LABS: Alanine Aminotransferase 26 IU/L (<35); Albumin 3.8 g/dL (3.5-5.0); Albumin Globulin Ratio 1.3 (1.0-2.8); Alkaline Phosphatase 81 U/L (38-126); Aspartate Aminotransferase 33 IU/L (14-36); Bilirubin Total 0.8 mg/dL (0.2-1.3); Blood Urea Nitrogen 15 mg/dL (7-17); Calcium 8.7 mg/dL (8.4-10.2); Carbon Dioxide 26 mmol/L (22-32); Chloride 104 mmol/L (98-107); Cholesterol 171 mg/dL (140-199); Estimated Glomerular Filt Rate > 60 mL/min (>60); Glucose 90 mg/dL (80-110); HDL Cholesterol 54 mg/dL (40-60); HEMOLYSIS < 15 (0-50); LDL Cholesterol Calculated 100 mg/dL (<100); Potassium 4.2 mmol/L (3.4-5.1); Sodium 138 mmol/L (137-145); Total Protein 6.8 g/dL (6.3-8.2); Triglycerides 83 mg/dL (35-150)
[2023-08-17 10:15] LABS: Free T3, Triiodothyronine Free 3.64 pg/mL (2.77-5.27); Free T4, Direct Thyroxine 1.54 ng/dL (0.78-2.19)
[2023-08-17 10:29] LABS: Thyroid Stimulating Hormone 1.49 uIU/mL (0.47-4.68)
[2023-08-17 11:02] LABS: Hep C Virus Ab w/Reflex Quant NEGATIVE s/c (NEGATIVE)
[2023-08-17 16:59] LABS: Creatinine Urine Random 127.4 mg/dL
[2023-08-17 17:03] LABS: Microalbumi Creatinin Ratio Ur 22.7 ug/mg CR (<30); Microalbumin Urine Random 2.9 mg/dL (0-1.6)
[2023-08-18 08:35] LABS: Thyroid Peroxidase Antibodies 97 IU/mL (0-34)
== END ==
PROVIDERS: Family Provider Nurse Practitioner; PCP Nurse Practitioner; Referring Provider Nurse Practitioner; Visit Provider Nurse Practitioner
DX: D64.9 Anemia, unspecified (principal); Z79.899 Other long term (current) drug therapy; I10 Essential (primary) hypertension; E78.00 Pure hypercholesterolemia, unspecified; E06.3 Autoimmune thyroiditis; M85.80 Other specified disorders of bone density and structure, unspecified site; E03.8 Other specified hypothyroidism; E87.1 Hypo-osmolality and hyponatremia
CPT/HCPCS: 36415; 80053; 80061; 82043; 82570; 83036; 84439; 84443; 84481; 85025; 86376; 86803

== ENCOUNTER → 2023-08-26 09:48 | Outpatient (CLI) | payer MEDICARE, OTHER, SELFPAY ==
[2023-06-09 18:00] VITALS: BMI 27.2
== END ==
LOC: RESP 09:49
PROVIDERS: Family Provider Nurse Practitioner; PCP Nurse Practitioner; Referring Provider Nurse Practitioner; Visit Provider Nurse Practitioner
DX: R06.02 Shortness of breath (principal); R94.2 Abnormal results of pulmonary function studies; J98.8 Other specified respiratory disorders
CPT/HCPCS: 94060; 94618; 94726; 94729

== ENCOUNTER → 2023-11-29 08:24 | Outpatient (CLI) | payer MEDICARE, OTHER, SELFPAY ==
[2023-06-09 18:00] VITALS: BMI 27.2
[2023-11-29 10:40] LABS: Alanine Aminotransferase 27 IU/L (<35); Albumin 3.9 g/dL (3.5-5.0); Albumin Globulin Ratio 1.6 (1.0-2.8); Alkaline Phosphatase 70 U/L (38-126); Aspartate Aminotransferase 33 IU/L (14-36); BUN Creatinine Ratio 16.3 (6-22); Bilirubin Total 0.8 mg/dL (0.2-1.3); Blood Urea Nitrogen 13 mg/dL (7-17); Calcium 8.7 mg/dL (8.4-10.2); Carbon Dioxide 29 mmol/L (22-32); Chloride 107 mmol/L (98-107); Cholesterol 189 mg/dL (140-199); Estimated Glomerular Filt Rate > 60 mL/min (>60); Globulin 2.5 g/dL (1.7-4.1); Glucose 86 mg/dL (80-110); HDL Cholesterol 86 mg/dL (40-60); HEMOLYSIS < 15 (0-50); LDL Cholesterol Calculated 84 mg/dL (<100); Potassium 4.3 mmol/L (3.4-5.1); Sodium 138 mmol/L (137-145); Total Protein 6.4 g/dL (6.3-8.2); Triglycerides 94 mg/dL (35-150)
[2023-11-29 10:53] LABS: Free T3, Triiodothyronine Free 3.21 pg/mL (2.77-5.27); Free T4, Direct Thyroxine 1.08 ng/dL (0.78-2.19)
[2023-11-30 07:36] LABS: Thyroid Peroxidase Antibodies 83 IU/mL (0-34)
[2023-12-07 07:22] LABS: Triiodothyronine T3 Reverse 24.4 ng/dL (.)
== END ==
PROVIDERS: Family Provider Nurse Practitioner; PCP Nurse Practitioner; Referring Provider Nurse Practitioner; Visit Provider Nurse Practitioner
DX: E78.5 Hyperlipidemia, unspecified (principal); Z79.899 Other long term (current) drug therapy; E06.3 Autoimmune thyroiditis
CPT/HCPCS: 36415; 80053; 80061; 84439; 84443; 84481; 84482; 86376

== ENCOUNTER → 2024-01-14 08:39 | Outpatient (CLI) | payer MEDICARE, OTHER, SELFPAY ==
[2023-06-09 18:00] VITALS: BMI 27.2
[2024-01-14 09:44] LABS: Add Manual Diff / Slide Review NO; Basophils Absolute Auto 0 /uL (0-100); Basophils Percent Auto 0.7 % (0-2); Eosinophils Absolute Auto 100 /uL (0-450); Eosinophils Percent Auto 1.9 % (2-4); Hematocrit 41.5 % (36-46); Lymphocytes Absolute Auto 1300 /uL (1100-4500); Lymphocytes Percent Auto 27.7 % (25-40); Mean Corpuscular HGB Conc 33.7 % (30-36); Mean Corpuscular Hemoglobin 30.2 PG (26-34); Mean Corpuscular Volume 89.7 fL (80-100); Monocytes Absolute Auto 400 /uL (0-900); Monocytes Percent Auto 8.8 % (3-14); Neutrophils Absolute Auto 2900 /uL (1500-7000); Neutrophils Percent Auto 60.9 % (50-75); Platelet Count 203 X10^3/uL (150-400); Red Blood Cell Count 4.63 X10^6/uL (4.0-5.2); Red Cell Distribution Width 13.7 % (11.6-14.8); White Blood Cell Count 4.7 X10^3/uL (4.5-11.0)
[2024-01-14 10:16] LABS: NT-proBNP (BNP-Adult 18+) 438 pg/mL (<125)
[2024-01-14 10:54] LABS: Alanine Aminotransferase 30 IU/L (<35); Albumin 4.2 g/dL (3.5-5.0); Albumin Globulin Ratio 1.7 (1.0-2.8); Alkaline Phosphatase 82 U/L (38-126); Aspartate Aminotransferase 35 IU/L (14-36); Blood Urea Nitrogen 16 mg/dL (7-17); Calcium 8.8 mg/dL (8.4-10.2); Carbon Dioxide 25 mmol/L (22-32); Chloride 107 mmol/L (98-107); Estimated Glomerular Filt Rate > 60 mL/min (>60); Globulin 2.5 g/dL (1.7-4.1); Glucose 86 mg/dL (80-110); HEMOLYSIS < 15 (0-50); Magnesium 2.2 mg/dL (1.6-2.3); Potassium 4.2 mmol/L (3.4-5.1); Sodium 140 mmol/L (137-145); Total Protein 6.7 g/dL (6.3-8.2)
[2024-01-14 11:11] LABS: Free T4, Direct Thyroxine 1.62 ng/dL (0.78-2.19)
[2024-01-15 07:36] LABS: Thyroid Peroxidase Antibodies 78 IU/mL (0-34)
== END ==
PROVIDERS: Family Provider Nurse Practitioner; PCP Nurse Practitioner; Referring Provider Internal Medicine Cardiovascular Disease; Visit Provider Internal Medicine Cardiovascular Disease
DX: R06.02 Shortness of breath (principal); R00.2 Palpitations; E03.8 Other specified hypothyroidism; E06.3 Autoimmune thyroiditis
CPT/HCPCS: 36415; 80053; 83735; 83880; 84439; 84443; 84481; 84482; 85025; 86376

== ENCOUNTER → 2024-04-12 08:52 | Outpatient (CLI) | payer MEDICARE, OTHER, SELFPAY ==
[2023-06-09 18:00] VITALS: BMI 27.2
[2024-04-12 10:47] LABS: Cholesterol 177 mg/dL (140-199); HDL Cholesterol 72 mg/dL (40-60); LDL Cholesterol Calculated 84 mg/dL (<100); Triglycerides 103 mg/dL (35-150)
[2024-04-12 10:52] LABS: Vitamin D 25 Hydroxy (D3) 80.4 ng/mL (30.0-100.0)
[2024-04-12 11:15] LABS: TSH w/ Reflex to FT4 4.42 uIU/mL (0.47-4.68)
== END ==
PROVIDERS: Family Provider Nurse Practitioner; PCP Family Medicine; Referring Provider Nurse Practitioner; Visit Provider Nurse Practitioner
DX: E06.3 Autoimmune thyroiditis (principal); M85.80 Other specified disorders of bone density and structure, unspecified site; Z78.0 Asymptomatic menopausal state; E78.5 Hyperlipidemia, unspecified
CPT/HCPCS: 36415; 80061; 82306; 84443; 86376; 86800

== ENCOUNTER → 2024-05-30 08:41 | Outpatient (CLI) | payer MEDICARE, OTHER, SELFPAY ==
[2023-06-09 18:00] VITALS: BMI 27.2
[2024-05-30 10:36] LABS: Free T3, Triiodothyronine Free 3.06 pg/mL (2.77-5.27)
[2024-05-30 10:49] LABS: TSH w/ Reflex to FT4 2.56 uIU/mL (0.47-4.68)
[2024-05-30 11:58] LABS: Hemoglobin A1C% w Est Avg Glu 5.3 % (4.0-6.0)
== END ==
PROVIDERS: Family Provider Nurse Practitioner; PCP Family Medicine; Referring Provider Family Medicine; Visit Provider Family Medicine
DX: R79.89 Other specified abnormal findings of blood chemistry (principal); E03.8 Other specified hypothyroidism; E06.3 Autoimmune thyroiditis; E78.5 Hyperlipidemia, unspecified; I10 Essential (primary) hypertension; Z79.899 Other long term (current) drug therapy
CPT/HCPCS: 36415; 83036; 84443; 84481

== ENCOUNTER → 2024-07-05 08:04 | Outpatient (CLI) | payer MEDICARE, OTHER, SELFPAY ==
[2023-06-09 18:00] VITALS: BMI 27.2
--- NOTE | 2024-07-05 08:05 | DI.MG.S_ITS ---
BILATERAL DIGITAL SCREENING MAMMOGRAM 3D/2D WITH CAD: 07/05/2024 CLINICAL: Routine screening. Personal history of right breast cancer. Comparison is made to exams dated: 06/18/2023 mammogram, 06/17/2022 mammogram, and 06/16/2021 mammogram - [facility]. The breasts are heterogeneously dense, which may obscure small masses (category c / 51-75% glandular tissue). Current study was also evaluated with a Computer Aided Detection (CAD) system. There are benign post operative findings in the right breast. No significant masses, calcifications, or other findings are seen in either breast. There has been no significant interval change. IMPRESSION: BENIGN There is no mammographic evidence of malignancy. A 1 year screening mammogram is recommended. This exam was interpreted at Station ID: [id number]. NOTE: For mammograms, a report in lay terms will be sent to the patient. Approximately 15% of breast malignancies will not be visualized mammographically. In the management of a palpable breast mass, a negative mammogram must not discourage biopsy of a clinically suspicious lesion. Electronically Signed By: Shaun mendoza/melchor:07/06/2024 18:02:11 letter sent: Normal Exam ACR BI-RADS Category 2: Benign
== END ==
PROVIDERS: Family Provider Nurse Practitioner; PCP Family Medicine; Referring Provider Family Medicine; Visit Provider Family Medicine
DX: Z12.31 Encounter for screening mammogram for malignant neoplasm of breast (principal); Z85.3 Personal history of malignant neoplasm of breast; R92.333 Mammographic heterogeneous density, bilateral breasts
CPT/HCPCS: 77063; 77067

== ENCOUNTER → 2024-10-26 08:11 | Outpatient (CLI) | payer MEDICARE, OTHER, SELFPAY ==
[2023-06-09 18:00] VITALS: BMI 27.2
[2024-10-26 09:39] LABS: Alanine Aminotransferase 27 IU/L (<35); Albumin 4.1 g/dL (3.5-5.0); Albumin Globulin Ratio 1.7 (1.0-2.8); Alkaline Phosphatase 79 U/L (38-126); Aspartate Aminotransferase 36 IU/L (14-36); BUN Creatinine Ratio 20.4 (6-22); Bilirubin Total 0.8 mg/dL (0.2-1.3); Blood Urea Nitrogen 20 mg/dL (7-17); Calcium 9.2 mg/dL (8.4-10.2); Carbon Dioxide 29 mmol/L (22-32); Chloride 104 mmol/L (98-107); Estimated Glomerular Filt Rate > 60 mL/min (>60); Globulin 2.4 g/dL (1.7-4.1); Glucose 85 mg/dL (70-99); HEMOLYSIS < 15 (0-50); Potassium 4.9 mmol/L (3.4-5.1); Sodium 139 mmol/L (137-145); Total Protein 6.5 g/dL (6.3-8.2)
[2024-10-26 09:46] LABS: NT-proBNP (BNP-Adult 18+) 313 pg/mL (<125)
== END ==
PROVIDERS: Family Provider Nurse Practitioner; PCP Family Medicine; Referring Provider Internal Medicine Cardiovascular Disease; Visit Provider Internal Medicine Cardiovascular Disease
DX: I50.32 Chronic diastolic (congestive) heart failure (principal); R06.02 Shortness of breath
CPT/HCPCS: 36415; 80053; 83880

== ENCOUNTER → 2024-12-18 16:13 | Outpatient (CLI) | payer MEDICARE, OTHER, SELFPAY ==
[2024-12-18 15:22] VITALS: BMI 27.2
== END ==
PROVIDERS: Family Provider Nurse Practitioner; PCP Family Medicine; Referring Provider Family Medicine; Visit Provider Family Medicine
DX: E03.8 Other specified hypothyroidism (principal); E06.3 Autoimmune thyroiditis
CPT/HCPCS: 36415; 84443

== ENCOUNTER → 2025-01-29 08:14 | Outpatient (CLI) | payer MEDICARE, OTHER, SELFPAY ==
[2024-12-18 15:22] VITALS: BMI 27.2
[2025-01-29 10:36] LABS: Thyroid Stimulating Hormone 2.48 uIU/mL (0.47-4.68)
== END ==
PROVIDERS: Family Provider Nurse Practitioner; PCP Family Medicine; Referring Provider Family Medicine; Visit Provider Family Medicine
DX: E03.8 Other specified hypothyroidism (principal); E06.3 Autoimmune thyroiditis
CPT/HCPCS: 36415; 84443